=== PATIENT | female | born 1945 | race Caucasian/White ===

== ENCOUNTER 2017-09-08 21:07 | Emergency (ER) | payer MEDICARE, SELFPAY ==
[2017-09-08 21:07] VITALS: BP 182/71; PULSE 100; RESP 20; TEMP 38.1; O2SAT 97; BMI 21.9
--- NOTE | 2017-09-08 22:17 | RAD_ITS ---
STUDY: X-RAY CHEST REASON FOR EXAM: Female, 72 years old. Cough TECHNIQUE: Frontal and lateral views of the chest COMPARISON: 05/31/2017 FINDINGS: The lungs are clear. There are no pleural effusions. There is no pneumothorax. The heart is normal in size. The visualized osseous structures are within normal limits. RAD/Chest PA and Lateral IMPRESSION: No acute thoracic pathology. Electronically Signed: Homero Layton, at 23:58 EST Tel , Service support ,
--- NOTE | 2017-09-08 22:18 | ED.VISSUMM ---
- ER Visit Summary Date of Service: 09/08/17 Chief Complaint: [] Cough History of Present Illness: The patient is a 72 F [] complaining of cough, fever/chills, myalgias during the peak of flu season. Symptoms started 1 week ago. Patient is concerned because the cough has become productive. No other complaints at this time. Denies chest pain or shortness of breath. Physical Examination: [] Febrile at 100.6. Vital signs are within normal limits. Elderly female no acute distress. Cardiovascular exam is regular rate and rhythm. Lungs are clear to auscultation. Abdomen is soft and nontender. Test Results: [] Chest x-ray negative per my interpretation. Emergency Department Course and Treatment: [] Patient provided Tylenol orally in the emergency department. She was able to drink an entire bottle of water during her ED stay. I did not feel any laboratory testing was warranted. She was encouraged to hydrate and follow-up with her PCP. Treatment Plan: [] Follow-up with PCP. Disposition: [] Discharge, stable. Impression: [] Viral syndrome This note was generated with [employer] dictation software. It may contain incorrect words, spelling, and punctuation that were not noted in review of the chart prior to signing ED Disposition - Plan for ED Patient: Chief Complaint: Cough Referrals: Ar Hernández Chi, MD [Primary Care Provider] -
[2017-09-08 23:11] VITALS: BP 147/63; PULSE 83; RESP 16; O2SAT 94
--- NOTE | 2017-09-08 23:45 | ED.DEP ---
ED Disposition - Plan for ED Patient: Disposition: Home or Assisted Living Chief Complaint: Cough Instructions: ED Flu Referrals: Ar Hernández Chi, MD [Primary Care Provider] -
[2017-09-09] MEDS: Acetaminophen 500 MG Tablet 1000 MG PO
--- NOTE | 2017-09-09 00:10 | ED.RN ---
DISCHARGE INSTRUCTIONS GIVEN TO AND REVIEWED WITH PATIENT, PATIENT DENIES QUESTIONS OR CONCERNS AND VOICES UNDERSTANDING OF DISCHARGE INSTRUCTIONS. PT AMBULATES OUT OF ROOM WITHOUT DIFFICULTY.
== END 2017-09-09 00:11 | disposition home or self-care (01) ==
PROVIDERS: Emergency Provider Emergency Medicine; Family Provider Family Medicine Geriatric Medicine; PCP Family Medicine Geriatric Medicine
DX: B34.9 Viral infection, unspecified (principal); J11.1 Influenza due to unidentified influenza virus with other respiratory manifestations; E78.00 Pure hypercholesterolemia, unspecified; Z85.038 Personal history of other malignant neoplasm of large intestine; Z79.82 Long term (current) use of aspirin; Z79.899 Other long term (current) drug therapy
CPT/HCPCS: 71046; 99283

== ENCOUNTER → 2017-09-10 14:39 | Outpatient (CLI) | payer MEDICARE, SELFPAY | PROVIDERS: Family Provider Family Medicine Geriatric Medicine; PCP Family Medicine Geriatric Medicine; Visit Provider Family Medicine Geriatric Medicine | DX: R50.9 Fever, unspecified (principal) | CPT/HCPCS: 87633 ==

== ENCOUNTER → 2018-04-02 13:53 | Outpatient (CLI) | payer MEDICARE, SELFPAY ==
[2018-04-02 15:35] LABS: Absolute Lymphocyte Count 2.53 X10^3/ul (0.83-4.51); Absolute Neutrophil Count 4.8 X10^3/uL (2.0-7.7); Basophil# 0.04 X10^3/uL; Basophil% 0.5 % (0-1); Eosinophil# 0.13 X10^3/uL; Eosinophils% 1.6 % (0-5); Hematocrit 39.6 % (37-47); Hemoglobin 12.7 g/dl (12.0-15.0); Lymphocyte # 2.53 X10^3/ul (4.0); Lymphocyte % 30.6 % (19-41); Mean Corp Hgb Conc 32.1 g/gl (32-36); Mean Corpuscular Hgb 28.4 pg (27.0-32.0); Mean Corpuscular Volume 88.6 fL (81-99); Mean Platelet Vol. 10.4 fl (6.2-12.0); Monocyte# 0.73 X10^3/uL; Monocyte% 8.8 % (0-10); Neutrophil # 4.82 X10^3/uL (2.7-7.7); Neutrophil % 58.1 % (47-70); Platelet Count 316 K/mm3 (150-450); RBC Distribution Width CV 14.4 % (11.6-14.6); RBC Distribution Width SD 46.8 fl (35.1-43.9); Red Blood Count 4.47 M/mm3 (4.2-5.4); White Blood Count 8.3 K/mm3 (4.4-11.0)
[2018-04-02 15:41] LABS: POSITIVE COUNT NO; POSITIVE DIFFERENTIAL NO; POSITIVE MORPHOLOGY NO
[2018-04-02 16:10] LABS: ALB/GLOB Ratio 0.9 RATIO (0.9-2.4); AST(SGOT) 24 U/L (15-37); Alanine Aminotransfer ALT/SGPT 27 U/L (13-56); Albumin, Serum 4.1 g/dL (3.2-5.0); Alkaline Phosphatase 75 U/L (45-117); Anion Gap 11 (5-15); BUN 14 mg/dL (7-18); BUN/Creat Ratio 17.1 RATIO (10-20); Calcium,Total 9.5 mg/dL (8.5-10.1); Chloride 106 mmol/L (98-107); Creatinine, Serum 0.82 mg/dL (0.55-1.02); EST Glomerular Filtration Rate 73 mL/min (>60); Est Glom Filt Rate - Afr Amer 88 mL/min (>60); Globulin 4.4 g/dL (2.2-4.2); Glucose 85 mg/dL (74-106); Potassium 4.4 mmol/L (3.5-5.1); Protein, Total 8.5 g/dL (6.4-8.2); Sodium Level 142 mmol/L (136-145); Thyroid Stim Hormone (TSH) 0.61 uIU/mL (0.358-3.74)
[2018-04-03 09:00] LABS: Vitamin D,25 Hydroxy 40.9 ng/mL (29.95-100.01)
== END ==
PROVIDERS: Family Provider Family Medicine Geriatric Medicine; PCP Family Medicine Geriatric Medicine; Visit Provider Family Medicine Geriatric Medicine
DX: E55.9 Vitamin D deficiency, unspecified (principal); R53.83 Other fatigue
CPT/HCPCS: 36415; 80053; 82306; 84443; 85025

== ENCOUNTER 2018-06-24 06:54 | Day surgery (SDC) | payer MEDICARE, SELFPAY ==
[2018-06-24 07:17] VITALS: BP 138/69; PULSE 79; RESP 14; TEMP 36.2; O2SAT 98; BMI 24.0
[2018-06-24 08:20] VITALS: BP 124/47; BP 138/69; PULSE 72; RESP 20; TEMP 36; O2SAT 96
--- NOTE | 2018-06-24 08:22 | OP.ENDO_ITS ---
Patient Name: Kalani Don Procedure Date: 06/24/2018 7:48 AM Date of : 1945 Age: 73 Procedure: Colonoscopy Indications: High risk colon cancer surveillance: Personal history of colon cancer Providers: Tommy Ding MD Medicines: See the Anesthesia note for documentation of the administered medications Patient Profile: Last Colonoscopy: 2016. Complications: No immediate complications. Procedure: Pre-Anesthesia Assessment: - Prior to the procedure, a History and Physical was performed, and patient medications and allergies were reviewed. The patient's tolerance of previous anesthesia was also reviewed. The risks and benefits of the procedure and the sedation options and risks were discussed with the patient. All questions were answered, and informed consent was obtained. Prior Anticoagulants: The patient has taken aspirin, last dose was 7 days prior to procedure. ASA Grade Assessment: II - A patient with mild systemic disease. After reviewing the risks and benefits, the patient was deemed in satisfactory condition to undergo the procedure. After I obtained informed consent, the scope was passed under direct vision. Throughout the procedure, the patient's blood pressure, pulse, and oxygen saturations were monitored continuously. The adult colonoscope was introduced through the anus and advanced to the ileocolonic anastomosis. The colonoscopy was performed with difficulty due to a tortuous colon. The patient tolerated the procedure well. The quality of the bowel preparation was good. Scope In: 7:55:38 AM Scope Out: 8:17:09 AM Total Procedure Duration Time 0 hours 21 minutes 31 seconds Findings: The perianal and digital rectal examinations were normal. Non-bleeding internal hemorrhoids were found during retroflexion. The hemorrhoids were mild and small. The exam was otherwise without abnormality. Impression: - Non-bleeding internal hemorrhoids. - The examination was otherwise normal. - No specimens collected. Recommendation: - Discharge patient to home. - Resume previous diet. - Continue present medications. - Repeat colonoscopy in 3 years for surveillance. - Return to my office in 3 years. Procedure Code(s): --- Professional --- G0105, Colorectal cancer screening; colonoscopy on individual at high risk CPT copyright 2017 [employer] [place] [employer] [employer]. All rights reserved. The codes documented in this report are preliminary and upon antenna installer review may be revised to meet current compliance requirements. MD Tommy Ervin MD 06/24/2018 8:22:13 AM This report has been signed electronically. Number of Addenda: 0 Note Initiated On: 06/24/2018 7:48 AM
[2018-06-24 08:25] VITALS: BP 125/54; BP 138/69; PULSE 66; RESP 16; O2SAT 97
[2018-06-24 08:30] VITALS: BP 138/69; BP 139/60; PULSE 67; RESP 16; O2SAT 97
[2018-06-24 08:36] VITALS: BP 138/69; BP 151/53; PULSE 62; RESP 16; TEMP 36.2; O2SAT 99
[2018-06-24 08:43] VITALS: BP 138/69
== END 2018-06-24 08:58 | disposition home or self-care (01) ==
LOC: EN 06:55 → AC 06:56
PROVIDERS: Family Provider Family Medicine Geriatric Medicine; PCP Family Medicine Geriatric Medicine; Referring Provider Surgery; Visit Provider Surgery
PROC: 0DJD8ZZ Inspection of Lower Intestinal Tract, Via Natural or Artificial Opening Endoscopic (ICD-10-PCS; CPT 45378; principal; 2018-06-24 07:55)
DX: Z85.038 Personal history of other malignant neoplasm of large intestine (principal); K64.8 Other hemorrhoids; K63.89 Other specified diseases of intestine; E78.00 Pure hypercholesterolemia, unspecified; Z78.0 Asymptomatic menopausal state; Z90.49 Acquired absence of other specified parts of digestive tract; Z79.82 Long term (current) use of aspirin; Z79.899 Other long term (current) drug therapy; Z87.891 Personal history of nicotine dependence
CPT/HCPCS: G0105; J7120; J1610; J2405

== ENCOUNTER 2018-07-16 20:44 | Emergency (ER) | payer MEDICARE, SELFPAY ==
[2018-07-16 20:45] VITALS: BP 207/100; PULSE 98; RESP 18; TEMP 35.8; O2SAT 96; BMI 25.4
--- NOTE | 2018-07-16 21:25 | ED.DCSUM_ITS ---
- ER Visit Summary Date of Service: 07/16/18 Chief Complaint: [] Fall right periorbital laceration History of Present Illness: The patient is a 73 F [] inadvertently stumbled and fell in the dark she struck the right periorbital area, she had an injury striking the right periorbital area about a week ago so there is contused but now she has 2 lacerations one is vertical one is more around the right eye she has no change in vision she nausea vomiting no fever no other complaints no blood thinners she simply tripped and fell Physical Examination: [] 200/100 she has an obvious laceration that is vertical to the lateral right periorbital area 2 cm she has a 1 cm vertical laceration just lateral to the brow the eye has a very focal subconjunctival hemorrhage around the 7 o'clock position but she has no eye pain pupil reacts well anterior chambers intact vision is normal extraocular muscle movements are full without entrapment she has really no pain around the facial bones, the nose is unremarkable the rest of the face and HEENT exam is unremarkable the neck is unremarkable full range of motion chest abdomen upper lower extremities unremarkable neurologically she is awake alert moving all 4 Tetanus status is up-to-date The patient adamantly refused suturing I explained to the sutures might cause a better cosmetic less apparent scar but she declined that she did agree to glue the area was sterilely prepped copious irrigated cleansed and then using skin glue closed with good results Her blood pressure is elevated here this is likely related to the head trauma as she has had no issues with her blood pressure staying of her meds she will have all that reviewed with her outpatient providers Instructed on wound care head injury sheet to follow with her doctors return for change in symptoms Test Results: [] Emergency Department Course and Treatment: [] Treatment Plan: [] Disposition: [] Impression: [] 2 cm, and 1 cm right periorbital facial laceration This note was generated with [employer] dictation software. It may contain incorrect words, spelling, and punctuation that were not noted in review of the chart prior to signing ED Disposition - Plan for ED Patient: Chief Complaint: Laceration Instructions: ED Head Injury Closed, ED Laceration Facial Skin Glue Referrals: Ar Hernández Chi, MD [Primary Care Provider] -
== END 2018-07-16 21:45 | disposition home or self-care (01) ==
LOC: ED 21:27
PROVIDERS: Emergency Provider Emergency Medicine; Family Provider Family Medicine Geriatric Medicine; PCP Family Medicine Geriatric Medicine
DX: S01.111A Laceration without foreign body of right eyelid and periocular area, initial encounter (principal); S01.81XA Laceration without foreign body of other part of head, initial encounter; H11.31 Conjunctival hemorrhage, right eye; W01.0XXA Fall on same level from slipping, tripping and stumbling without subsequent striking against object, initial encounter; Y93.9 Activity, unspecified; Y92.9 Unspecified place or not applicable
CPT/HCPCS: 12013; 99281

== ENCOUNTER → 2018-10-01 14:36 | Outpatient (CLI) | payer MEDICARE, SELFPAY ==
--- NOTE | 2018-10-01 14:42 | RAD_ITS ---
STUDY: X-RAY - SKULL REASON FOR EXAM: Female, 73 years old. Intermittent right orbital pain. TECHNIQUE: 3 view(s) of the skull were obtained. COMPARISON: None. FINDINGS: There is no demonstrated soft tissue swelling. Normal osseous calvarium. Normal visualized facial bones. Normal visualized paranasal sinuses. RAD/Skull less than 4 Views IMPRESSION: Normal x-ray examination of the skull. Electronically Signed: Magdy Babcock MD at 15:48 EST , Service support ,
[2018-10-01 17:10] LABS: Absolute Lymphocyte Count 2.05 X10^3/ul (0.83-4.51); Absolute Neutrophil Count 6.6 X10^3/uL (2.0-7.7); Basophil# 0.04 X10^3/uL; Basophil% 0.4 % (0-1); Eosinophil# 0.16 X10^3/uL; Eosinophils% 1.7 % (0-5); Hematocrit 38.4 % (37-47); Hemoglobin 12.2 g/dl (12.0-15.0); Lymphocyte # 2.05 X10^3/ul (4.0); Lymphocyte % 21.4 % (19-41); Mean Corp Hgb Conc 31.8 g/gl (32-36); Mean Corpuscular Hgb 28.6 pg (27.0-32.0); Mean Corpuscular Volume 89.9 fL (81-99); Mean Platelet Vol. 10.8 fl (6.2-12.0); Monocyte# 0.78 X10^3/uL; Monocyte% 8.1 % (0-10); Neutrophil # 6.55 X10^3/uL (2.7-7.7); Neutrophil % 68.2 % (47-70); Platelet Count 269 K/mm3 (150-450); RBC Distribution Width CV 14.4 % (11.6-14.6); RBC Distribution Width SD 47.2 fl (35.1-43.9); Red Blood Count 4.27 M/mm3 (4.2-5.4); White Blood Count 9.6 K/mm3 (4.4-11.0)
[2018-10-01 17:17] LABS: POSITIVE COUNT NO; POSITIVE DIFFERENTIAL NO; POSITIVE MORPHOLOGY NO
[2018-10-01 17:49] LABS: Vitamin D,25 Hydroxy 25.7 ng/mL (29.95-100.01)
[2018-10-01 17:59] LABS: AST(SGOT) 24 U/L (15-37); Alanine Aminotransfer ALT/SGPT 23 U/L (13-56); Albumin, Serum 3.8 g/dL (3.2-5.0); Alkaline Phosphatase 88 U/L (45-117); Anion Gap 10 (5-15); BUN 16 mg/dL (7-18); BUN/Creat Ratio 18.7 RATIO (10-20); Calcium,Total 9.1 mg/dL (8.5-10.1); Chloride 107 mmol/L (98-107); Creatinine, Serum 0.86 mg/dL (0.55-1.02); EST Glomerular Filtration Rate 69 mL/min (>60); Est Glom Filt Rate - Afr Amer 83 mL/min (>60); Glucose 88 mg/dL (74-106); Potassium 3.5 mmol/L (3.5-5.1); Protein, Total 7.8 g/dL (6.4-8.2); Sodium Level 142 mmol/L (136-145); Thyroid Stim Hormone (TSH) 1.02 uIU/mL (0.358-3.74)
== END ==
PROVIDERS: Family Provider Family Medicine Geriatric Medicine; PCP Family Medicine Geriatric Medicine; Referring Provider Family Medicine Geriatric Medicine; Visit Provider Family Medicine Geriatric Medicine
DX: H57.11 Ocular pain, right eye (principal); W19.XXXA Unspecified fall, initial encounter; E55.9 Vitamin D deficiency, unspecified; I10 Essential (primary) hypertension
CPT/HCPCS: 36415; 70250; 80053; 82306; 84443; 85025

== ENCOUNTER → 2018-12-11 | Outpatient (CLI) | payer MEDICARE, SELFPAY | END | disposition home or self-care (01) | LOC: PSN 14:31 | PROVIDERS: Family Provider Family Medicine Geriatric Medicine; PCP Family Medicine Geriatric Medicine; Referring Provider Family Medicine Geriatric Medicine; Visit Provider Family Medicine Geriatric Medicine | DX: R05 Cough (principal); R53.81 Other malaise | CPT/HCPCS: 87633 ==

== ENCOUNTER → 2019-05-06 13:45 | Outpatient (CLI) | payer MEDICARE, SELFPAY ==
[2019-05-06 16:33] LABS: Absolute Lymphocyte Count 2.35 X10^3/uL (0.83-4.51); Absolute Neutrophil Count 5.2 X10^3/uL (2.0-7.7); Basophil# 0.04 X10^3/uL; Basophil% 0.5 % (0-1); Eosinophil# 0.17 X10^3/uL; Hematocrit 38.1 % (37-47); Hemoglobin 12.1 g/dL (12.0-15.0); Lymphocyte # 2.35 X10^3/ul (4.0); Lymphocyte % 27.8 % (19-41); Mean Corp Hgb Conc 31.8 g/dL (32-36); Mean Corpuscular Hgb 28.4 pg (27.0-32.0); Mean Corpuscular Volume 89.4 fL (81-99); Mean Platelet Vol. 10.4 fl (6.2-12.0); Monocyte# 0.69 X10^3/uL; Monocyte% 8.2 % (0-10); NRBC Flagged by Analyzer 0 % (0-5); Neutrophil # 5.16 X10^3/uL (2.7-7.7); Neutrophil % 61.1 % (47-70); Platelet Count 294 K/mm3 (150-450); RBC Distribution Width CV 13.9 % (11.6-14.6); RBC Distribution Width SD 45.1 fl (35.1-43.9); Red Blood Count 4.26 M/mm3 (4.2-5.4); White Blood Count 8.4 K/mm3 (4.4-11.0)
[2019-05-06 16:56] LABS: Vitamin D,25 Hydroxy 37.9 ng/mL (29.95-100.01)
[2019-05-06 17:08] LABS: AST(SGOT) 22 U/L (15-37); Alanine Aminotransfer ALT/SGPT 23 U/L (13-56); Albumin, Serum 3.8 g/dL (3.2-5.0); Alkaline Phosphatase 83 U/L (45-117); Anion Gap 8 (5-15); BUN 16 mg/dL (7-18); BUN/Creat Ratio 19.4 RATIO (10-20); Calcium,Total 9.3 mg/dL (8.5-10.1); Chloride 106 mmol/L (98-107); Creatinine, Serum 0.82 mg/dL (0.55-1.02); EST Glomerular Filtration Rate 72 mL/min (>60); Est Glom Filt Rate - Afr Amer 87 mL/min (>60); Globulin 3.8 g/dL (2.2-4.2); Glucose 96 mg/dL (74-106); Potassium 4.6 mmol/L (3.5-5.1); Protein, Total 7.6 g/dL (6.4-8.2); Sodium Level 142 mmol/L (136-145); Thyroid Stim Hormone (TSH) 1.24 uIU/mL (0.358-3.74)
== END ==
PROVIDERS: Family Provider Family Medicine Geriatric Medicine; PCP Family Medicine Geriatric Medicine; Visit Provider Family Medicine Geriatric Medicine
DX: I10 Essential (primary) hypertension (principal); E55.9 Vitamin D deficiency, unspecified
CPT/HCPCS: 36415; 80053; 82306; 84443; 85025

== ENCOUNTER → 2019-07-25 11:07 | Outpatient (CLI) | payer MEDICARE, SELFPAY | PROVIDERS: Family Provider Family Medicine Geriatric Medicine; PCP Family Medicine Geriatric Medicine; Visit Provider Family Medicine Geriatric Medicine | DX: N39.0 Urinary tract infection, site not specified (principal) | CPT/HCPCS: 87077; 87086; 87088; 87186 ==

== ENCOUNTER → 2019-08-28 15:55 | Outpatient (CLI) | payer MEDICARE, SELFPAY ==
--- NOTE | 2019-08-28 16:08 | RAD_ITS ---
STUDY: X-RAY CHEST REASON FOR EXAM: Female, 74 years old. Cough with flu-like symptoms for 3 days. TECHNIQUE: Frontal and lateral views of the chest. COMPARISON: September 08, 2017 FINDINGS: Stable hyperexpansion. New patchy opacity in right upper lobe compatible with right upper lobe pneumonia. There is no demonstrated pleural abnormality. Stable borderline cardiomegaly. Normal mediastinum and michelle. Normal visualized pulmonary arteries. There is atherosclerotic calcification of the aortic arch with tortuosity. Normal visualized thoracic spine. Normal visualized ribs, clavicles, and shoulders. There is no demonstrated abnormality of the visualized soft tissue structures of the upper abdomen. RAD/Chest PA and Lateral IMPRESSION: Borderline cardiomegaly with hyperexpansion unchanged. Right upper lobe pneumonia. Electronically Signed: Nick Alvarez MD at 16:40 EST , Service support ,
== END ==
PROVIDERS: PCP Family Medicine Geriatric Medicine; Referring Provider Family Medicine Geriatric Medicine; Visit Provider Family Medicine Geriatric Medicine
DX: R05 Cough (principal); R68.83 Chills (without fever)
CPT/HCPCS: 71046; 87633

== ENCOUNTER → 2019-12-29 14:55 | Outpatient (CLI) | payer MEDICARE, SELFPAY ==
[2019-12-29 16:35] LABS: Absolute Lymphocyte Count 2.07 X10^3/uL (0.83-4.51); Absolute Neutrophil Count 5.5 X10^3/uL (2.0-7.7); Basophil# 0.06 X10^3/uL; Basophil% 0.7 % (0-1); Eosinophil# 0.12 X10^3/uL; Eosinophils% 1.4 % (0-5); Hematocrit 40.7 % (37-47); Hemoglobin 12.8 g/dL (12.0-15.0); Lymphocyte # 2.07 X10^3/ul (4.0); Lymphocyte % 24.5 % (19-41); Mean Corp Hgb Conc 31.4 g/dL (32-36); Mean Corpuscular Hgb 28.2 pg (27.0-32.0); Mean Corpuscular Volume 89.6 fL (81-99); Monocyte# 0.67 X10^3/uL; Monocyte% 7.9 % (0-10); NRBC Flagged by Analyzer 0 % (0-5); Neutrophil # 5.48 X10^3/uL (2.7-7.7); Platelet Count 322 K/mm3 (150-450); RBC Distribution Width CV 14.6 % (11.6-14.6); RBC Distribution Width SD 47.4 fl (35.1-43.9); Red Blood Count 4.54 M/mm3 (4.2-5.4); White Blood Count 8.4 K/mm3 (4.4-11.0)
[2019-12-29 16:55] LABS: AST(SGOT) 22 U/L (15-37); Alanine Aminotransfer ALT/SGPT 25 U/L (13-56); Albumin, Serum 3.8 g/dL (3.2-5.0); Alkaline Phosphatase 75 U/L (45-117); Anion Gap 8 (5-15); BUN 16 mg/dL (7-18); BUN/Creat Ratio 18.6 RATIO (10-20); Calcium,Total 9.3 mg/dL (8.5-10.1); Chloride 108 mmol/L (98-107); Creatinine, Serum 0.86 mg/dL (0.55-1.02); EST Glomerular Filtration Rate 68 mL/min (>60); Est Glom Filt Rate - Afr Amer 82 mL/min (>60); Globulin 3.8 g/dL (2.2-4.2); Glucose 123 mg/dL (74-106); Potassium 3.6 mmol/L (3.5-5.1); Protein, Total 7.6 g/dL (6.4-8.2); Sodium Level 143 mmol/L (136-145); Thyroid Stim Hormone (TSH) 1.18 uIU/mL (0.358-3.74)
== END ==
PROVIDERS: PCP Family Medicine Geriatric Medicine; Visit Provider Family Medicine Geriatric Medicine
DX: I10 Essential (primary) hypertension (principal); E55.9 Vitamin D deficiency, unspecified
CPT/HCPCS: 36415; 80053; 82306; 84443; 85025

== ENCOUNTER → 2020-05-12 15:50 | Outpatient (CLI) | payer MEDICARE, SELFPAY ==
[2020-05-12 17:04] LABS: Absolute Lymphocyte Count 2.22 X10^3/uL (0.83-4.51); Absolute Neutrophil Count 4.8 X10^3/uL (2.0-7.7); Basophil# 0.06 X10^3/uL; Basophil% 0.8 % (0-1); Eosinophil# 0.14 X10^3/uL; Eosinophils% 1.8 % (0-5); Hemoglobin 12.5 g/dL (12.0-15.0); Lymphocyte # 2.22 X10^3/ul (4.0); Lymphocyte % 28.1 % (19-41); Mean Corp Hgb Conc 31.3 g/dL (32-36); Mean Corpuscular Hgb 28.4 pg (27.0-32.0); Mean Corpuscular Volume 90.9 fL (81-99); Mean Platelet Vol. 10.1 fl (6.2-12.0); Monocyte# 0.61 X10^3/uL; Monocyte% 7.7 % (0-10); NRBC Flagged by Analyzer 0 % (0-5); Neutrophil # 4.83 X10^3/uL (2.7-7.7); Neutrophil % 61.1 % (47-70); Platelet Count 318 K/mm3 (150-450); RBC Distribution Width CV 14.2 % (11.6-14.6); RBC Distribution Width SD 47.5 fl (35.1-43.9); White Blood Count 7.9 K/mm3 (4.4-11.0)
[2020-05-12 17:13] LABS: Vitamin D,25 Hydroxy 49.9 ng/mL
[2020-05-12 17:20] LABS: AST(SGOT) 21 U/L (15-37); Alanine Aminotransfer ALT/SGPT 23 U/L (13-56); Albumin, Serum 4.1 g/dL (3.2-5.0); Alkaline Phosphatase 134 U/L (45-117); Anion Gap 9 (5-15); BUN 14 mg/dL (7-18); BUN/Creat Ratio 16.8 RATIO (10-20); Calcium,Total 9.4 mg/dL (8.5-10.1); Chloride 103 mmol/L (98-107); Creatinine, Serum 0.84 mg/dL (0.55-1.02); EST Glomerular Filtration Rate 70 mL/min (>60); Est Glom Filt Rate - Afr Amer 85 mL/min (>60); Glucose 92 mg/dL (74-106); Potassium 3.8 mmol/L (3.5-5.1); Protein, Total 8.1 g/dL (6.4-8.2); Sodium Level 138 mmol/L (136-145); Thyroid Stim Hormone (TSH) 1.38 uIU/mL (0.358-3.74)
== END ==
PROVIDERS: PCP Family Medicine Geriatric Medicine; Visit Provider Family Medicine Geriatric Medicine
DX: R53.83 Other fatigue (principal); E55.9 Vitamin D deficiency, unspecified
CPT/HCPCS: 36415; 80053; 82306; 84443; 85025

== ENCOUNTER → 2020-08-31 17:23 | Outpatient (CLI) | payer MEDICARE, SELFPAY | PROVIDERS: PCP Family Medicine Geriatric Medicine; Referring Provider Family Medicine Geriatric Medicine; Visit Provider Family Medicine Geriatric Medicine | DX: R68.83 Chills (without fever) (principal) | CPT/HCPCS: 87633; 87635; C9803; U0003 ==

== ENCOUNTER → 2020-11-03 14:01 | Outpatient (CLI) | payer MEDICARE, SELFPAY ==
[2020-11-03 16:33] LABS: Absolute Lymphocyte Count 2.54 X10^3/uL (0.83-4.51); Absolute Neutrophil Count 5.6 X10^3/uL (2.0-7.7); Basophil# 0.05 X10^3/uL; Basophil% 0.6 % (0-1); Eosinophil# 0.12 X10^3/uL; Eosinophils% 1.3 % (0-5); Hemoglobin 12.6 g/dL (12.0-15.0); Lymphocyte # 2.54 X10^3/ul (4.0); Mean Corp Hgb Conc 31.5 g/dL (32-36); Mean Corpuscular Hgb 28.4 pg (27.0-32.0); Mean Corpuscular Volume 90.1 fL (81-99); Mean Platelet Vol. 10.4 fl (6.2-12.0); Monocyte# 0.77 X10^3/uL; Monocyte% 8.5 % (0-10); NRBC Flagged by Analyzer 0 % (0-5); Neutrophil # 5.55 X10^3/uL (2.7-7.7); Platelet Count 321 K/mm3 (150-450); RBC Distribution Width CV 14.4 % (11.6-14.6); RBC Distribution Width SD 47.9 fl (35.1-43.9); Red Blood Count 4.44 M/mm3 (4.2-5.4); White Blood Count 9.1 K/mm3 (4.4-11.0)
[2020-11-03 16:53] LABS: Vitamin D,25 Hydroxy 35.5 ng/mL
[2020-11-03 17:01] LABS: AST(SGOT) 20 U/L (15-37); Alanine Aminotransfer ALT/SGPT 22 U/L (13-56); Albumin, Serum 3.8 g/dL (3.2-5.0); Alkaline Phosphatase 82 U/L (45-117); Anion Gap 8 (5-15); BUN 17 mg/dL (7-18); BUN/Creat Ratio 21.2 RATIO (10-20); Calcium,Total 8.8 mg/dL (8.5-10.1); Chloride 108 mmol/L (98-107); EST Glomerular Filtration Rate 74 mL/min (>60); Est Glom Filt Rate - Afr Amer 89 mL/min (>60); Globulin 3.7 g/dL (2.2-4.2); Glucose 120 mg/dL (74-106); Potassium 4.3 mmol/L (3.5-5.1); Protein, Total 7.5 g/dL (6.4-8.2); Sodium Level 141 mmol/L (136-145); Thyroid Stim Hormone (TSH) 1.09 uIU/mL (0.358-3.74)
== END ==
PROVIDERS: PCP Family Medicine Geriatric Medicine; Visit Provider Family Medicine Geriatric Medicine
DX: E55.9 Vitamin D deficiency, unspecified (principal); R53.83 Other fatigue
CPT/HCPCS: 36415; 80053; 82306; 84443; 85025

== ENCOUNTER → 2021-05-16 16:16 | Outpatient (CLI) | payer MEDICARE, SELFPAY ==
[2021-05-16 17:36] LABS: Absolute Lymphocyte Count 2.71 X10^3/uL (0.83-4.51); Absolute Neutrophil Count 5.2 X10^3/uL (2.0-7.7); Basophil# 0.06 X10^3/uL; Basophil% 0.7 % (0-1); Eosinophil# 0.16 X10^3/uL; Eosinophils% 1.8 % (0-5); Hematocrit 37.7 % (37-47); Hemoglobin 11.9 g/dL (12.0-15.0); Lymphocyte # 2.71 X10^3/ul (0.83-4.51); Lymphocyte % 30.3 % (19-41); Mean Corp Hgb Conc 31.6 g/dL (32-36); Mean Corpuscular Hgb 28.2 pg (27.0-32.0); Mean Corpuscular Volume 89.3 fL (81-99); Monocyte# 0.75 X10^3/uL; Monocyte% 8.4 % (0-10); NRBC Flagged by Analyzer 0 % (0-5); Neutrophil # 5.21 X10^3/uL (2.7-7.7); Neutrophil % 58.4 % (47-70); Platelet Count 292 K/mm3 (150-450); RBC Distribution Width CV 14.1 % (11.6-14.6); RBC Distribution Width SD 45.4 fl (35.1-43.9); Red Blood Count 4.22 M/mm3 (4.2-5.4); White Blood Count 8.9 K/mm3 (4.4-11.0)
[2021-05-16 17:55] LABS: Vitamin D,25 Hydroxy 27.6 ng/mL
[2021-05-16 17:59] LABS: ALB/GLOB Ratio 0.9 RATIO (0.9-2.4); AST(SGOT) 19 U/L (15-37); Alanine Aminotransfer ALT/SGPT 21 U/L (13-56); Albumin, Serum 3.7 g/dL (3.2-5.0); Alkaline Phosphatase 82 U/L (45-117); Anion Gap 10 (5-15); BUN 18 mg/dL (7-18); BUN/Creat Ratio 25.8 RATIO (10-20); Calcium,Total 9.1 mg/dL (8.5-10.1); Chloride 103 mmol/L (98-107); EST Glomerular Filtration Rate 86 mL/min (>60); Est Glom Filt Rate - Afr Amer 104 mL/min (>60); Globulin 3.9 g/dL (2.2-4.2); Glucose 95 mg/dL (74-106); Potassium 3.7 mmol/L (3.5-5.1); Protein, Total 7.6 g/dL (6.4-8.2); Sodium Level 138 mmol/L (136-145); Thyroid Stim Hormone (TSH) 1.01 uIU/mL (0.358-3.74)
== END ==
PROVIDERS: PCP Family Medicine Geriatric Medicine; Visit Provider Family Medicine Geriatric Medicine
DX: I10 Essential (primary) hypertension (principal); E55.9 Vitamin D deficiency, unspecified
CPT/HCPCS: 36415; 80053; 82306; 84443; 85025

== ENCOUNTER → 2021-12-21 | Outpatient (CLI) | payer MEDICARE, SELFPAY ==
--- NOTE | 2021-12-21 16:30 | RAD_ITS ---
INDICATION: NECK PAIN EXAMINATION/TECHNIQUE: X-RAY - XR Spine Cervical 2 or 3 Views COMPARISON: None. FINDINGS: VERTEBRAE: Vertebral body height is maintained, there are findings consistent with fusion at C5-6. There is straightening of cervical lordosis. No fracture noted. No destructive bony process noted. Odontoid process has normal appearance. No fracture. No spondylolisthesis. Odontoid process has normal appearance. Multilevel facet arthropathy noted most notable from C3 to C5, and at C6-7. DISCS: Significant spondylosis noted at C6-7 with endplate sclerosis and marginal osteophyte formation. No anterolisthesis noted. Fusion at C5-6 is noted. NECK SOFT TISSUES: No prevertebral soft tissue widening. LUNG APICES: Clear. RAD/Cerv Spine 2 or 3 Views IMPRESSION: 1. Cervical spondylosis, facet arthropathy as detailed. There are findings consistent with fusion at the C5-6 level which may be congenital. 2. No acute fractures identified. No destructive bony process. Electronically Signed: Amadou Astudillo MD at 20:49 EDT ,
[2021-12-21 17:10] LABS: Absolute Neutrophil Count 5.9 X10^3/uL (2.0-7.7); Basophil# 0.07 X10^3/uL; Basophil% 0.7 % (0-1); Eosinophil# 0.24 X10^3/uL; Eosinophils% 2.4 % (0-5); Hematocrit 37.5 % (37-47); Hemoglobin 12.4 g/dL (12.0-15.0); Lymphocyte % 30.7 % (19-41); Mean Corp Hgb Conc 33.1 g/dL (32-36); Mean Corpuscular Hgb 29.2 pg (27.0-32.0); Mean Corpuscular Volume 88.4 fL (81-99); Mean Platelet Vol. 10.3 fl (6.2-12.0); Monocyte# 0.79 X10^3/uL; Monocyte% 7.8 % (0-10); NRBC Flagged by Analyzer 0 % (0-5); Neutrophil # 5.86 X10^3/uL (2.7-7.7); Neutrophil % 57.9 % (47-70); Platelet Count 306 K/mm3 (150-450); RBC Distribution Width CV 13.8 % (11.6-14.6); RBC Distribution Width SD 44.7 fl (35.1-43.9); Red Blood Count 4.24 M/mm3 (4.2-5.4); White Blood Count 10.1 K/mm3 (4.4-11.0)
[2021-12-21 17:35] LABS: ALB/GLOB Ratio 1.1 RATIO (0.9-2.4); AST(SGOT) 20 U/L (15-37); Alanine Aminotransfer ALT/SGPT 25 U/L (13-56); Alkaline Phosphatase 165 U/L (45-117); Anion Gap 6 (5-15); BUN 21 mg/dL (7-18); BUN/Creat Ratio 24.2 RATIO (10-20); Calcium,Total 9.4 mg/dL (8.5-10.1); Chloride 104 mmol/L (98-107); Creatinine, Serum 0.87 mg/dL (0.55-1.02); EST Glomerular Filtration Rate 67 mL/min (>60); Est Glom Filt Rate - Afr Amer 81 mL/min (>60); Globulin 3.8 g/dL (2.2-4.2); Glucose 105 mg/dL (74-106); Protein, Total 7.8 g/dL (6.4-8.2); Sodium Level 138 mmol/L (136-145); Thyroid Stim Hormone (TSH) 1.29 uIU/mL (0.358-3.74)
== END | disposition home or self-care (01) ==
LOC: POLAB3 15:53 → RAD 16:25
PROVIDERS: PCP Family Medicine Geriatric Medicine; Referring Provider Family Medicine Geriatric Medicine; Visit Provider Family Medicine Geriatric Medicine
DX: M54.2 Cervicalgia (principal); I10 Essential (primary) hypertension; E55.9 Vitamin D deficiency, unspecified
CPT/HCPCS: 36415; 72040; 80053; 82306; 84443; 85025

== ENCOUNTER → 2022-06-14 | Outpatient (CLI) | payer MEDICARE, SELFPAY ==
[2022-06-14 17:26] LABS: Vitamin D,25 Hydroxy 40.4 ng/mL
[2022-06-14 17:38] LABS: ALB/GLOB Ratio 0.9 RATIO (0.9-2.4); AST(SGOT) 21 U/L (15-37); Alanine Aminotransfer ALT/SGPT 26 U/L (13-56); Albumin, Serum 3.8 g/dL (3.2-5.0); Alkaline Phosphatase 160 U/L (45-117); Anion Gap 8 (5-15); BUN 20 mg/dL (7-18); BUN/Creat Ratio 27.2 RATIO (10-20); Calcium,Total 8.9 mg/dL (8.5-10.1); Chloride 107 mmol/L (98-107); Creatinine, Serum 0.73 mg/dL (0.55-1.02); EST Glomerular Filtration Rate 81 mL/min (>60); Est Glom Filt Rate - Afr Amer 98 mL/min (>60); Globulin 4.3 g/dL (2.2-4.2); Glucose 100 mg/dL (74-106); Protein, Total 8.1 g/dL (6.4-8.2); Sodium Level 137 mmol/L (136-145); Thyroid Stim Hormone (TSH) 1.14 uIU/mL (0.358-3.74)
== END | disposition home or self-care (01) ==
LOC: POLAB3 13:56
PROVIDERS: PCP Family Medicine Geriatric Medicine; Visit Provider Family Medicine Geriatric Medicine
DX: E55.9 Vitamin D deficiency, unspecified (principal); R53.83 Other fatigue
CPT/HCPCS: 36415; 80053; 82306; 84443

== ENCOUNTER → 2022-09-28 | Outpatient (CLI) | payer MEDICARE, SELFPAY | END | disposition home or self-care (01) | LOC: PSN 13:44 | PROVIDERS: PCP Family Medicine Geriatric Medicine; Visit Provider Family Medicine Geriatric Medicine | DX: R68.83 Chills (without fever) (principal) | CPT/HCPCS: 87635; 87804; 87807; U0003; U0005 ==

== ENCOUNTER → 2023-02-05 | Outpatient (CLI) | payer MEDICARE, SELFPAY ==
[2023-02-05 17:16] LABS: Absolute Lymphocyte Count 3.01 X10^3/uL (0.83-4.51); Absolute Neutrophil Count 5.1 X10^3/uL (2.0-7.7); Basophil# 0.09 X10^3/uL; Basophil% 0.9 % (0-1); Eosinophil# 0.51 X10^3/uL; Eosinophils% 5.3 % (0-5); Hematocrit 39.9 % (37-47); Hemoglobin 12.6 g/dL (12.0-15.0); Lymphocyte # 3.01 X10^3/ul (0.83-4.51); Lymphocyte % 31.1 % (19-41); Mean Corp Hgb Conc 31.6 g/dL (32-36); Mean Corpuscular Hgb 28.2 pg (27.0-32.0); Mean Corpuscular Volume 89.3 fL (81-99); Mean Platelet Vol. 9.9 fl (6.2-12.0); Monocyte# 0.97 X10^3/uL; NRBC Flagged by Analyzer 0 % (0-5); Neutrophil # 5.05 X10^3/uL (2.7-7.7); Neutrophil % 52.3 % (47-70); Platelet Count 297 K/mm3 (150-450); RBC Distribution Width CV 14.8 % (11.6-14.6); RBC Distribution Width SD 48.9 fl (35.1-43.9); Red Blood Count 4.47 M/mm3 (4.2-5.4); White Blood Count 9.7 K/mm3 (4.4-11.0)
[2023-02-05 17:44] LABS: Vitamin D,25 Hydroxy 53.9 ng/mL
[2023-02-05 17:49] LABS: ALB/GLOB Ratio 0.9 RATIO (0.9-2.4); AST(SGOT) 24 U/L (15-37); Alanine Aminotransfer ALT/SGPT 19 U/L (13-56); Albumin, Serum 3.7 g/dL (3.2-5.0); Alkaline Phosphatase 119 U/L (45-117); Anion Gap 7 (5-15); BUN 15 mg/dL (7-18); BUN/Creat Ratio 19.9 RATIO (10-20); Calcium,Total 9.1 mg/dL (8.5-10.1); Chloride 108 mmol/L (98-107); Creatinine, Serum 0.75 mg/dL (0.55-1.02); EST Glomerular Filtration Rate 79 mL/min (>60); Est Glom Filt Rate - Afr Amer 95 mL/min (>60); Globulin 3.9 g/dL (2.2-4.2); Glucose 98 mg/dL (74-106); Protein, Total 7.6 g/dL (6.4-8.2); Sodium Level 142 mmol/L (136-145); Thyroid Stim Hormone (TSH) 1.55 uIU/mL (0.358-3.74)
== END | disposition home or self-care (01) ==
LOC: LAB 16:42
PROVIDERS: PCP Family Medicine Geriatric Medicine; Referring Provider Family Medicine Geriatric Medicine; Visit Provider Family Medicine Geriatric Medicine
DX: I10 Essential (primary) hypertension (principal); E55.9 Vitamin D deficiency, unspecified
CPT/HCPCS: 36415; 80053; 82306; 84443; 85025

== ENCOUNTER → 2023-06-18 | Outpatient (CLI) | payer MEDICARE, SELFPAY ==
[2023-06-18 15:43] LABS: Absolute Lymphocyte Count 2.39 X10^3/uL (0.83-4.51); Absolute Neutrophil Count 5.7 X10^3/uL (2.0-7.7); Basophil# 0.06 X10^3/uL; Basophil% 0.7 % (0-1); Eosinophil# 0.23 X10^3/uL; Eosinophils% 2.5 % (0-5); Hematocrit 38.7 % (37-47); Hemoglobin 12.3 g/dL (12.0-15.0); Lymphocyte # 2.39 X10^3/ul (0.83-4.51); Mean Corp Hgb Conc 31.8 g/dL (32-36); Mean Corpuscular Hgb 28.4 pg (27.0-32.0); Mean Corpuscular Volume 89.4 fL (81-99); Mean Platelet Vol. 9.8 fl (6.2-12.0); Monocyte% 8.7 % (0-10); NRBC Flagged by Analyzer 0 % (0-5); Neutrophil # 5.66 X10^3/uL (2.7-7.7); Neutrophil % 61.7 % (47-70); Platelet Count 286 K/mm3 (150-450); RBC Distribution Width SD 46.1 fl (35.1-43.9); Red Blood Count 4.33 M/mm3 (4.2-5.4); White Blood Count 9.2 K/mm3 (4.4-11.0)
[2023-06-18 17:45] LABS: Vitamin D,25 Hydroxy 55.3 ng/mL
[2023-06-18 17:53] LABS: ALB/GLOB Ratio 1.1 RATIO (0.9-2.4); AST(SGOT) 17 U/L (15-37); Alanine Aminotransfer ALT/SGPT 18 U/L (13-56); Albumin, Serum 3.8 g/dL (3.2-5.0); Alkaline Phosphatase 108 U/L (45-117); Anion Gap 5 (5-15); BUN 24 mg/dL (7-18); BUN/Creat Ratio 31.2 RATIO (10-20); Chloride 108 mmol/L (98-107); Creatinine, Serum 0.77 mg/dL (0.55-1.02); EST Glomerular Filtration Rate 77 mL/min (>60); Est Glom Filt Rate - Afr Amer 93 mL/min (>60); Globulin 3.6 g/dL (2.2-4.2); Glucose 98 mg/dL (74-106); Potassium 3.9 mmol/L (3.5-5.1); Protein, Total 7.4 g/dL (6.4-8.2); Sodium Level 141 mmol/L (136-145); Thyroid Stim Hormone (TSH) 1.26 uIU/mL (0.358-3.74)
== END | disposition home or self-care (01) ==
LOC: POLAB3 15:07
PROVIDERS: PCP Family Medicine Geriatric Medicine; Visit Provider Family Medicine Geriatric Medicine
DX: I10 Essential (primary) hypertension (principal); E55.9 Vitamin D deficiency, unspecified
CPT/HCPCS: 36415; 80053; 82306; 84443; 85025

== ENCOUNTER → 2023-09-18 | Outpatient (CLI) | payer MEDICARE, SELFPAY ==
--- OUTSIDE RECORDS SUMMARY | 2023-09-18 16:45 | XMS RPT_ITS | CCD ---
Author Name Unknown Address [address] [place] [address] Organization [facility] Care Team Providers Care Practice Nurse Name Role Phone Tommy Ding MD Unavailable Felipa PEREIRA, Sharon Damon Unavailable [phone] Autumn Power Unavailable Unavailable Tommy Ding MD Unavailable Edgar, Ar Chi Primary Care Provider Edgar, Ar Chi Primary Care Provider Allergies Allergy Classification Reported Allergen(s) Allergy Type Date of Onset Reaction(s) Facility (4 sources) povidone-iodine drug allergy 11-03-2015 unknown [facility] Work Phone: (8 sources) traMADol drug allergy 06-10-2012 vomiting [facility] Work Phone: (8 sources) ALTRAM drug allergy 06-10-2012 vominting [facility] Work Phone: (2 sources) Iodine Drug Allergy 04-13-2016 Rash [facility] (2 sources) traMADol Drug Allergy 01-01-2013 GI Upset [facility] Medications Completed/Discontinued Medications Medication Drug Class(es) Dates Sig (Normalized) Sig (Original) acetaminophen 325 mg / oxyCODONE hydrochloride 5 mg oral tablet (8 sources) Opioid Agonist Start: 05-27-2012 End: 06-24-2012 take 1-2 tablets by mouth four times daily as needed for pain PERCOCET 5-325 MG TABS one to two tablets by mouth four times daily as needed for pain OXYCODONE-ACETAMIN OPHEN [id number] 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 Problems Active Problems Problem Classification Problem Date Documented Da te Episodic/Chronic Cancer of colon (8 sources) History of malignant neoplasm of colon; Translations: [Personal history of other malignant neoplasm of large intestine] Onset: 03-11-2014 03-28-2017 Episodic Diseases of white blood cells (4 sources) Leukocytosis; Translations: [Elevated white blood cell count, unspecified] Onset: 12-01-2015 12-01-2015 Chronic Infective arthritis and osteomyelitis (except that caused by tuberculosis or sexually transmitted disease) (4 sources) Other acute osteomyelitis, unspecified hand; Translations: [Other acute osteomyelitis, unspecified hand] Onset: 06-03-2012 06-24-2012 Chronic Substance-related disorders (4 sources) Smoker; Translations: [Nicotine dependence, cigarettes, uncomplicated] Onset: 06-03-2012 06-24-2012 Chronic Past or Other Problems Problem Classification Problem Date Documented Da te Episodic/Chronic Bacterial infection; unspecified site (4 sources) Staphylococcal infectious disease; Translations: [Methicillin susceptible Staphylococcus aureus infection as the cause of diseases classified elsewhere] Onset: 06-04-2012 06-04-2012 Episodic Genitourinary symptoms and ill-defined conditions (4 sources) History of urinary tract infection; Translations: [Personal history of urinary (tract) infections] Onset: 03-28-2017 03-28-2017 Episodic Neoplasms of unspecified nature or uncertain behavior (2 sources) Neoplasm of uncertain behavior of skin; Translations: [Neoplasm of uncertain behavior of skin] Onset: 07-08-2011 07-08-2011 Episodic Other acquired deformities (4 sources) Mallet finger of unspecified finger(s); Translations: [Mallet finger of unspecified finger(s)] Onset: 06-03-2012 06-24-2012 Episodic Other connective tissue disease (4 sources) Ganglion of joint; Translations: [Ganglion of joint] Onset: 05-22-2012 05-26-2012 Episodic Other gastrointestinal disorders (4 sources) Disorder of intestine; Translations: [Other specified diseases of intestine] Onset: 03-28-2017 03-28-2017 Episodic Other skin disorders (2 sources) Sebaceous cyst of skin; Translations: [Sebaceous cyst] Onset: 06-05-2007 06-05-2007 Episodic Thyroid disorders (4 sources) Disorder of thyroid gland; Translations: [Disorder of thyroid, unspecified] Onset: 03-28-2017 03-28-2017 Episodic Results Test Name Value Interpretation Reference Range Facil ity Vital Signs Date Time Vital Sign Value Performing Clinician Facility 03-23-2022 13:40-0400 Diastolic blood pressure 78 mm[Hg] Tommy Ding MD Work Phone: [facility] 03-23-2022 13:40-0400 Heart rate 73 /min Tommy Ding MD Work Phone: [facility] 03-23-2022 13:40-0400 SaO2% (BldA) [Mass fraction] 100 % Tommy Ding MD Work Phone: [facility] 03-23-2022 13:40-0400 Systolic blood pressure 186 mm[Hg] Tommy Ding MD Work Phone: [facility] 03-23-2022 13:10-0400 Respiratory rate 16 /min Tommy Ding MD Work Phone: [facility] 03-23-2022 12:00-0400 Body temperature 97.9 [degF] Tommy Ding MD Work Phone: [facility] 02-28-2022 14:00-0400 Body height 157.5 cm Tommy Ding MD Work Phone: [facility] 02-28-2022 14:00-0400 Body temperature 97.39 [degF] Tommy Ding MD Work Phone: [facility] 02-28-2022 14:00-0400 Body weight 59.6 kg Tommy Ding MD Work Phone: [facility] 02-28-2022 14:00-0400 Diastolic blood pressure 76 mm[Hg] Tommy Ding MD Work Phone: [facility] 02-28-2022 14:00-0400 Heart rate 87 /min Tommy Ding MD Work Phone: [facility] 02-28-2022 14:00-0400 SaO2% (BldA) [Mass fraction] 97 % Tommy Ding MD Work Phone: [facility] 02-28-2022 14:00-0400 Systolic blood pressure 136 mm[Hg] Tommy Ding MD Work Phone: [facility] 03-28-2017 12:54-0400 BMI (Body Mass Index) 23.12 kg/m2 [facility] Work Phone: 03-28-2017 12:54-0400 Body Temperature 98.2 [degF] [facility] Work Phone: 03-28-2017 12:54-0400 BP Diastolic 79 mm[Hg] [facility] Work Phone: 03-28-2017 12:54-0400 BP Systolic 149 mm[Hg] [facility] Work Phone: 03-28-2017 12:54-0400 Height 157.48 cm [facility] Work Phone: 03-28-2017 12:54-0400 Pulse (Heart Rate) 81 /min [facility] Work Phone: 03-28-2017 12:54-0400 Respiratory Rate 18 /min [facility] Work Phone: 03-28-2017 12:54-0400 Weight 57.34 kg [facility] Work Phone: 03-28-2017 12:54-0400 Weight 57.33 kg [facility] Work Phone: 12-15-2015 13:03-0400 BSA (Body Surface Area) 1.56 m2 [facility] Work Phone: Encounters Encounter Date Encounter Type Care Provider Facility Start: 03-23-2022 End: 03-23-2022 Subsequent hospital visit by physician Tommy Ding MD Work Phone: Ambulatory Surgery Procedures Date Procedure Procedure Detail Performing Clinician Start: 03-23-2022 Colonoscopy flx dx w /collj spec when pfrmd Tommy Ding MD Work Phone: Start: 03-23-2022 Colonoscopy Tommy jose MD Work Phone: Start: 04-05-2016 Colonoscopy Tommy jose MD Work Phone: Plan of Treatment Date Care Activity Detail Author Start: 03-23-2023 Colonoscopy COLONOSCOPY [facility] Start: 04-13-2022 Influenza vaccination INFLUENZA (#1) [facility] Start: 08-13-2021 ADVANCE DIRECTIVE DISCUSSION ADVANCE DIRECTIVE DISCUSSION [facility] Start: 04-11-2017 End: 04-11-2017 Appointment Appointment [facility] Work Phone: Start: 04-05-2017 Colonoscopy COLONOSCOPY [facility] Start: 04-02-2017 End: 04-02-2017 Appointment Appointment [facility] Work Phone: Start: 04-02-2017 End: 04-02-2017 Diagnostic colonoscopy Colonoscopy [facility] Work Phone: Start: 03-28-2017 End: 03-28-2017 Appointment Appointment [facility] Work Phone: Start: 12-10-2015 End: 12-09-2015 Echo exam of abdomen US Abdomen, limited [facility] Work Phone: Start: 06-28-2012 End: 06-28-2012 X-ray exam of hand X-Ray, Hand [facility] Work Phone: Start: 06-24-2012 End: 06-25-2012 Erythrocyte sedimentation rate *Sedimentation Rate (ESR) [facility] Work Phone: Start: 06-20-2012 End: 06-20-2012 Erythrocyte sedimentation rate *Sedimentation Rate (ESR) [facility] Work Phone: Start: 06-13-2012 PNEUMOCOCCAL: 65+ (2 - PCV) PNEUMOCOCCAL: 65+ (2 - PCV) [facility] Start: 06-04-2012 End: 06-04-2012 C reactive protein (hsCRP) *CRP, high sensitivity [facility] Work Phone: Start: 06-04-2012 End: 06-04-2012 CBC W Auto Differential panel - Blood *CBC without Diff [facility] Work Phone: Start: 06-04-2012 End: 06-04-2012 Erythrocyte sedimentation rate *Sedimentation Rate (ESR) [facility] Work Phone: Start: 02-16-2008 BONE DENSITY BONE DENSITY [facility] Start: 1993 SHINGRIX VACCINE (1 of 2) SHINGRIX VACCINE (1 of 2) [facility] Start: 02-16-1988 DIABETES SCREEN DIABETES SCREEN [facility] Start: 1962 Urine microalbumin profile DTAP,TDAP,TD (1 - Tdap) [facility] Start: 1955 Adult depression screening assessment DEPRESSION SCREENING [facility] End: 02-28-2023 COLONOSCOPY DIAGNOSTIC COLONOSCOPY DIAGNOSTIC Endoscopy Routine Personal history of colon cancer 1 Occurrences starting 02/28/2022 until 02/28/2023 [facility] Work Phone: Immunizations Immunization Date Immunization Notes Care Provider [facility] 06-13-2011 influenza virus vacc ine, unspecified formulation Tommy Ding MD Work Phone: [facility] 06-13-2011 pneumococcal polysaccharide vaccine, 23 valent Tommy Ding MD Work Phone: [facility] Payers Date Payer Category Payer Unknown PRIMETIME PRIMET MICHAELA O POS [id number] 2014-Present [phone] [address] [place] [address] O [id number] 2014 Unknown PRIMETIME PRIMET MICHAELA O POS [id number] 2014-Present [phone] [address] [facility] [place] [address] O [id number] Social History Date Type Detail Facility Start: 04-05-2016 End: 03-23-2022 Tobacco smoking status NHIS Ex-smoker [facility] End: 04-05-2014 History of tobacco use Current smoker [facility] End: 04-05-2014 History of tobacco use Cigarette Smoker [facility] Start: 04-05-2016 End: 03-23-2022 Tobacco use and exposure Smokeless tobacco non-user [facility] Start: 02-28-2022 End: 03-23-2022 Alcohol intake Current non-drinker of alcohol (finding) [facility] Start: 08-29-2010 End: 03-23-2022 Tobacco Comment 1.5 packs/week [facility] Start: 1945 Sex Assigned At Not on file [facility] Start: 02-18-2022 End: 03-23-2022 Exposure to SARS-CoV-2 (event) Not sure [facility] Clinical Notes 08-16-2011 to 03-23-2022 Rosita Bernal RN - 03/23/2022 1:40 PM EDTGefrain Bernal RN - 03/23/2022 1:21 PM EDTTommy Ding MD - 03/23/2022 12:45 PM EDTBnic Nava - 02/28/2022 2:42 PM EDTPatient Instructions Note Date & Type Note Facility 03-23-2022 Nurse Note Patient states no discomfort, no complaints . Passing flatus at intervals. Abdomen soft. Bowel sounds in quadrants X 4. Daughter sitting at bedside with patient. IV hydration continued due to dehydration. Rosita Bernal RN [id number]--Arrived in phase II via cart. Left lateral position. Sedated, but responds to verbal stimuli. Color normal; skin warm and dry. Respirations wnl and unlabored. Abdomen soft and with + bowel sounds in quads X 4. Patient resting comfortably. Family at bedside. Dr. Ding with family to review procedure and recommendations. Rosita Bernal RN documented in this encounter [facility] 03-23-2022 History and physical note Images from the original note were not included. HISTORY AND PHYSICAL Kalani Don 1945 REFERRING PHYSICIAN: MD Jarrod CHIEF COMPLAINT: Consult (colonoscopy consult) HPI: The patient is a 77 year old female referred for endoscopy. Kalani notes the following GI complaints: Kalani denies abdominal pain.. Kalani denies diarrhea. Kalani denies constipation. Kalani denies a change in bowel habits. Kalani denies melena. Kalani denies bright red blood per rectum. Kalani denies hemorrhoids. The patient notes no history of upper GI complaints. Kalani has undergone prior endoscopy. Colonoscopy 04/05/2016 was negative. She has a history of colon cancer back in 2011. PAST MEDICAL HISTORY PAST MEDICAL HISTORY Diagnosis Date Bladder infection 02/02/14 Other specified disorder of intestines Personal history of colon cancer Thyroid disorder PAST SURGICAL HISTORY PAST SURGICAL HISTORY Procedure Laterality Date APPENDECTOMY age 1 COLONOSCOPY 02/10/14 repeat 3 yrs COLONOSCOPY 03/15/2015 repeat 1 year COLONOSCOPY FLX DX W/COLLJ SPEC WHEN PFRMD 04/05/2016 Repeat 03/2017 COLONOSCOPY W/BIOPSY SINGLE/MULTIPLE 07/11/11 with submucosal injection COLONOSCOPY W/BIOPSY SINGLE/MULTIPLE 01/21/13 repeat 1 yr LAPS COLECTOMY PRTL W/RMVL TERMINAL ILEUM 11-27-11 MAMMOGRAM DIAGNOSTIC June 2011 [facility] OVARIAN CYSTECTOMY UNI/BI 1973 Ovarian Cystectomy PAST SURGICAL HISTORY OF repair torn minuscus in left knee PAST SURGICAL HISTORY OF cyst removal from back and scalp CURRENT MEDICATIONS Current Outpatient Medications Medication Sig citalopram hydrobromide (CELEXA) 10 mg tablet Take 1 Tablet orally once per day for 90 days baclofen (LIORESAL) 10 mg tablet TAKE 1 TABLET BY MOUTH DAILY FOR 30 DAYS meloxicam (MOBIC) 7.5 mg tablet Take 7.5 mg by mouth daily with food. aspirin 81 mg chewable tablet Take 81 mg by mouth once daily. pravastatin (PRAVACHOL) 40 mg tablet Take 40 mg by mouth once daily. ergocalciferol, vitamin D2, (DRISDOL) 50,000 unit capsule Take 50,000 Units by mouth once every month. peg 3350-Electrolytes (GOLYTELY) 236-22.74-6.74 -5.86 gram suspension Refer to printed prep instructions from your provider. No current facility-administered medications for this visit. ALLERGIES: Iodine and Ultram [Tramadol Hcl] PERSONAL HISTORY: SOCIAL HISTORY Social History Tobacco Use Smoking status: Former Smoker Years: 20.00 Types: Cigarettes Quit date: 04/05/2014 Years since quittin.9 Smokeless tobacco: Never Used Tobacco comment: 1.5 packs/week Vaping Use Vaping Use: Never used Substance Use Topics Alcohol use: No Drug use: No FAMILY HISTORY: FAMILY HISTORY FAMILY HISTORY Problem Relation Age of Onset Cervical Cancer Mother Heart Attack Father REVIEW OF SYMPTOMS: The review of systems data was entered by the nurse and reviewed by me There are no exam notes on file for this visit. PHYSICAL EXAMINATION: General: The patient is 77 year old female, well nourished, well hydrated in no acute distress. The patient is oriented to time, place, and person. VITALS: Blood pressure 136/76, pulse 87, temperature 36.3 C (97.4 F), height 157.5 cm (5' 2 ), weight 59.6 kg (131 lb 6.4 oz), SpO2 97 %. Body mass index is 24.03 kg/m . HEENT: Normal cephalic, ataumatic, pupils are equally round, sclera are anicteric, mucous membranes are moist, oropharynx is clear. Neck has no masses, asymmetry or lymphadenopathy. Thyroid is unremarkable. Respiratory: Clear to auscultation and percussion. Normal respiratory excursion and pattern. Cardiac: Examination is regular rate and rhythm. Abdominal exam: Soft, nontender, with no palpable masses. No hepatosplenomegaly. No palpable hernias. Rectal exam: exam deferred Extremities: no clubbing, cyanosis or edema. No adenopathy. Other: LABORATORY VALUES: As Noted RADIOLOGIC STUDIES: As Noted Assessment IMPRESSION: Personal history of colon cancer (primary encounter diagnosis) PLAN: I plan to perform lower endoscopy. We discussed the risks and benefits of the planned endoscopy. I have informed the patient that complications can occur including failure to complete the endoscopy and perforation. The patient had the opportunity to ask questions concerning the planned endoscopy. My staff has also explained the procedure to the patient in understandable terms and has given the patient printed material concerning the procedure. The patient freely consents to surgery. I plan to use Miralax bowel preperation for endoscopy Diagnoses: (Z85.038) Personal history of colon cancer (primary encounter diagnosis) Return to Clinic: The patient is instructed to follow-up with me 1 week post operatively. COVID (Procedure Consent) Procedure Criteria Procedure Criteria: Yes Elective The surgeon/proceduralist and patient have discussed in detail the risk of exposure to and/or potential harm posed by the COVID-19 virus with having a surgery/procedure at this time versus the risk of delaying the surgery/procedure. It is not possible to know either the risk of delaying the surgery or procedure or chance of getting an infection with perfect accuracy, but a joint decision was made between the patient and the surgeon/proceduralist to proceed at this time with the scheduled surgery/procedure as indicated on the consent form. Tommy Ding III, MD UPDATED HISTORY AND PHYSICAL EXAMINATION SERVICE DATE: 03/23/2022 SERVICE TIME: 12:20 PM PHYSICAL EXAM MUST BE COMPLETED ON ADMISSION The History and Physical (completed in the past 30 days) has been reviewed and the patient has been examined. The contents accurately reflect the patient's condition with the following additions or revisions since the H&P was completed. Examination indicates no changes. This H&P can be found in the attached. SIGNATURE: Tommy Ding III, MD PATIENT NAME: Kalani Don DATE: March 23, 2022 TIME: 12:20 PM documented in this encounter [facility] 02-28-2022 Note HNO ID: [id number] Author: Tommy Ding MD Service: ? Author Type: Physician Type: Progress Notes Filed: 02/28/2022 2:39 PM Note Text: HISTORY AND PHYSICAL Kalani Barreto Florencia 1945 REFERRING PHYSICIAN: MD Jarrod CHIEF COMPLAINT: Consult (colonoscopy consult) HPI: The patient is a 77 year old female referred for endoscopy. Kalani notes the following GI complaints: Kalani denies abdominal pain.. Kalain denies diarrhea. Kalani denies constipation. Kalani denies a change in bowel habits. Kalani denies melena. Kalani denies bright red blood per rectum. Kalani denies hemorrhoids. The patient notes no history of upper GI complaints. Kalani has undergone prior endoscopy. Colonoscopy 04/05/2016 was negative. She has a history of colon cancer back in 2011. PAST MEDICAL HISTORY Diagnosis Date - Bladder infection 02/02/14 - Other specified disorder of intestines - Personal history of colon cancer - Thyroid disorder PAST SURGICAL HISTORY Procedure Laterality Date - APPENDECTOMY age 1 - COLONOSCOPY 02/10/14 repeat 3 yrs - COLONOSCOPY 03/15/2015 repeat 1 year - COLONOSCOPY FLX DX W/COLLJ SPEC WHEN PFRMD 04/05/2016 Repeat 03/2017 - COLONOSCOPY W/BIOPSY SINGLE/MULTIPLE 07/11/11 with submucosal injection - COLONOSCOPY W/BIOPSY SINGLE/MULTIPLE 01/21/13 repeat 1 yr - LAPS COLECTOMY PRTL W/RMVL TERMINAL ILEUM 11-27-11 - MAMMOGRAM DIAGNOSTIC June 2011 [facility] - OVARIAN CYSTECTOMY UNI/BI 1973 Ovarian Cystectomy - PAST SURGICAL HISTORY OF repair torn minuscus in left knee - PAST SURGICAL HISTORY OF cyst removal from back and scalp Current Outpatient Medications Medication Sig - citalopram hydrobromide (CELEXA) 10 mg tablet Take 1 Tablet orally once per day for 90 days - baclofen (LIORESAL) 10 mg tablet TAKE 1 TABLET BY MOUTH DAILY FOR 30 DAYS - meloxicam (MOBIC) 7.5 mg tablet Take 7.5 mg by mouth daily with food. - aspirin 81 mg chewable tablet Take 81 mg by mouth once daily. - pravastatin (PRAVACHOL) 40 mg tablet Take 40 mg by mouth once daily. - ergocalciferol, vitamin D2, (DRISDOL) 50,000 unit capsule Take 50,000 Units by mouth once every month. - peg 3350-Electrolytes (GOLYTELY) 236-22.74-6.74 -5.86 gram suspension Refer to printed prep instructions from your provider. No current facility-administered medications for this visit. ALLERGIES: Iodine and Ultram [Tramadol Hcl] PERSONAL HISTORY: Social History Tobacco Use - Smoking status: Former Smoker Years: 20.00 Types: Cigarettes Quit date: 04/05/2014 Years since quittin.9 - Smokeless tobacco: Never Used - Tobacco comment: 1.5 packs/week Vaping Use - Vaping Use: Never used Substance Use Topics - Alcohol use: No - Drug use: No FAMILY HISTORY: FAMILY HISTORY Problem Relation Age of Onset - Cervical Cancer Mother - Heart Attack Father REVIEW OF SYMPTOMS: The review of systems data was entered by the nurse and reviewed by me There are no exam notes on file for this visit. PHYSICAL EXAMINATION: General: The patient is 77 year old female, well nourished, well hydrated in no acute distress. The patient is oriented to time, place, and person. VITALS: Blood pressure 136/76, pulse 87, temperature 36.3 ?C (97.4 ?F), height 157.5 cm (5' 2 ), weight 59.6 kg (131 lb 6.4 oz), SpO2 97 %. Body mass index is 24.03 kg/m?. HEENT: Normal cephalic, ataumatic, pupils are equally round, sclera are anicteric, mucous membranes are moist, oropharynx is clear. Neck has no masses, asymmetry or lymphadenopathy. Thyroid is unremarkable. Respiratory: Clear to auscultation and percussion. Normal respiratory excursion and pattern. Cardiac: Examination is regular rate and rhythm. Abdominal exam: Soft, nontender, with no palpable masses. No hepatosplenomegaly. No palpable hernias. Rectal exam: exam deferred Extremities: no clubbing, cyanosis or edema. No adenopathy. Other: LABORATORY VALUES: As Noted RADIOLOGIC STUDIES: As Noted Assessment IMPRESSION: Personal history of colon cancer (primary encounter diagnosis) PLAN: I plan to perform lower endoscopy. We discussed the risks and benefits of the planned endoscopy. I have informed the patient that complications can occur including failure to complete the endoscopy and perforation. The patient had the opportunity to ask questions concerning the planned endoscopy. My staff has also explained the procedure to the patient in understandable terms and has given the patient printed material concerning the procedure. The patient freely consents to surgery. I plan to use Miralax bowel preperation for endoscopy Diagnoses: (Z85.038) Personal history of colon cancer (primary encounter diagnosis) Return to Clinic: The patient is instructed to follow-up with me 1 week post operatively. COVID (Procedure Consent) Procedure Criteria Procedure Criteria: Yes Elective The surgeon/proceduralist and patient have discussed in detail the risk of exp (more content not included)... [facility] 02-28-2022 Nurse Note REVIEW OF SYSTEMS: General: The patient denies fatigue, denies weight loss, denies weight gain, denies feeling hot, and denies feelings of cold. Eyes: The patient denies glaucoma, denies eye injury/surgery, wears glasses or contacts. Ear/Nose/Throat: The patient denies allergies, denies hayfever, denies ear infections, and denies bloody noses. Cardiovascular: The patient denies chest pain, denies heart disease, denies high blood pressure,denies cardiac stent, denies prior heart attack, denies irregular heart beat, NOTES high cholesterol, denies poor circulation, denies heart failure, other cardiac issues, denies claudication, denies cold feet, denies peripheral arterial stent. Respiratory: The patient denies tuberculosis, denies pneumonia, denies frequent cough, denies pulmonary embolism, denies shortness of breath, and denies coughing up blood. Gastrointestinal: The patient denies difficulty swallowing, denies acid reflux, denies ulcers, denies vomiting, denies jaundice/hepatitis, denies gallbladder problems, denies black or tarry stools, denies hemorrhoids, denies bleeding from rectum, denies diverticulitis, denies constipation, denies diarrhea, denies loss of stool control, and denies hernias. Kidney/Bladder: The patient denies kidney stones, denies urine infections, and denies bloody urine. Skin: The patient denies a history of skin cancer, denies bleeding/changing moles, and denies a history of skin rash. Neurologic: The patient denies a history of epilepsy/convulsions, denies headaches, denies head/spinal injuries, and denies stroke/TIA. Psychiatric: The patient denies psychiatric medications, denies depression, and denies voices, denies substance abuse. Endocrine: The patient denies thyroid disorders, denies diabetes, and denies hormonal problems. Hematologic: The patient denies a history of bruising, denies bleeding, and denies anemia, denies blood clots. Infections: The patient NOTES a history of measles and mumps, denies rheumatic fever, and denies sexually transmitted diseases. Musculoskeletal: The patient denies back pain/injury, denies back problems, denies sciatica, NOTES knee/foot trouble, denies arthritis, or denies gout. When was patient's last Mammogram screening? N/A Last Colonoscopy: 2015 Cassy Nava documented in this encounter [facility] 02-28-2022 History of Presen t illness Narrative HISTORY AND PHYSICAL Kalani Barreto [place] 1945 REFERRING PHYSICIAN: MD Jarrod CHIEF COMPLAINT: Consult (colonoscopy consult) HPI: The patient is a 77 year old female referred for endoscopy. Kalani notes the following GI complaints: Kalani denies abdominal pain.. Kalani denies diarrhea. Kalani denies constipation. Kalani denies a change in bowel habits. Kalani denies melena. Kalani denies bright red blood per rectum. Kalani denies hemorrhoids. The patient notes no history of upper GI complaints. Kalani has undergone prior endoscopy. Colonoscopy 04/05/2016 was negative. She has a history of colon cancer back in 2011. PAST MEDICAL HISTORY Diagnosis Date Bladder infection 02/02/14 Other specified disorder of intestines Personal history of colon cancer Thyroid disorder PAST SURGICAL HISTORY Procedure Laterality Date APPENDECTOMY age 1 COLONOSCOPY 02/10/14 repeat 3 yrs COLONOSCOPY 03/15/2015 repeat 1 year COLONOSCOPY FLX DX W/COLLJ SPEC WHEN PFRMD 04/05/2016 Repeat 03/2017 COLONOSCOPY W/BIOPSY SINGLE/MULTIPLE 07/11/11 with submucosal injection COLONOSCOPY W/BIOPSY SINGLE/MULTIPLE 01/21/13 repeat 1 yr LAPS COLECTOMY PRTL W/RMVL TERMINAL ILEUM 11-27-11 MAMMOGRAM DIAGNOSTIC June 2011 [facility] OVARIAN CYSTECTOMY UNI/BI 1973 Ovarian Cystectomy PAST SURGICAL HISTORY OF repair torn minuscus in left knee PAST SURGICAL HISTORY OF cyst removal from back and scalp Current Outpatient Medications Medication Sig citalopram hydrobromide (CELEXA) 10 mg tablet Take 1 Tablet orally once per day for 90 days baclofen (LIORESAL) 10 mg tablet TAKE 1 TABLET BY MOUTH DAILY FOR 30 DAYS meloxicam (MOBIC) 7.5 mg tablet Take 7.5 mg by mouth daily with food. aspirin 81 mg chewable tablet Take 81 mg by mouth once daily. pravastatin (PRAVACHOL) 40 mg tablet Take 40 mg by mouth once daily. ergocalciferol, vitamin D2, (DRISDOL) 50,000 unit capsule Take 50,000 Units by mouth once every month. peg 3350-Electrolytes (GOLYTELY) 236-22.74-6.74 -5.86 gram suspension Refer to printed prep instructions from your provider. No current facility-administered medications for this visit. ALLERGIES: Iodine and Ultram [Tramadol Hcl] PERSONAL HISTORY: Social History Tobacco Use Smoking status: Former Smoker Years: 20.00 Types: Cigarettes Quit date: 04/05/2014 Years since quittin.9 Smokeless tobacco: Never Used Tobacco comment: 1.5 packs/week Vaping Use Vaping Use: Never used Substance Use Topics Alcohol use: No Drug use: No FAMILY HISTORY: FAMILY HISTORY Problem Relation Age of Onset Cervical Cancer Mother Heart Attack Father REVIEW OF SYMPTOMS: The review of systems data was entered by the nurse and reviewed by me There are no exam notes on file for this visit. PHYSICAL EXAMINATION: General: The patient is 77 year old female, well nourished, well hydrated in no acute distress. The patient is oriented to time, place, and person. VITALS: Blood pressure 136/76, pulse 87, temperature 36.3 C (97.4 F), height 157.5 cm (5' 2 ), weight 59.6 kg (131 lb 6.4 oz), SpO2 97 %. Body mass index is 24.03 kg/m . HEENT: Normal cephalic, ataumatic, pupils are equally round, sclera are anicteric, mucous membranes are moist, oropharynx is clear. Neck has no masses, asymmetry or lymphadenopathy. Thyroid is unremarkable. Respiratory: Clear to auscultation and percussion. Normal respiratory excursion and pattern. Cardiac: Examination is regular rate and rhythm. Abdominal exam: Soft, nontender, with no palpable masses. No hepatosplenomegaly. No palpable hernias. Rectal exam: exam deferred Extremities: no clubbing, cyanosis or edema. No adenopathy. Other: LABORATORY VALUES: As Noted RADIOLOGIC STUDIES: As Noted Assessment IMPRESSION: Personal history of colon cancer (primary encounter diagnosis) PLAN: I plan to perform lower endoscopy. We discussed the risks and benefits of the planned endoscopy. I have informed the patient that complications can occur including failure to complete the endoscopy and perforation. The patient had the opportunity to ask questions concerning the planned endoscopy. My staff has also explained the procedure to the patient in understandable terms and has given the patient printed material concerning the procedure. The patient freely consents to surgery. I plan to use Miralax bowel preperation for endoscopy Diagnoses: (Z85.038) Personal history of colon cancer (primary encounter diagnosis) Return to Clinic: The patient is instructed to follow-up with me 1 week post operatively. COVID (Procedure Consent) Procedure Criteria Procedure Criteria: Yes Elective The surgeon/proceduralist and patient have discussed in detail the risk of exposure to and/or potential harm posed by the COVID-19 virus with having a surgery/procedure at this time versus the risk of delaying the surgery/procedure. It is not possible to know either the risk of delaying the surgery or procedure or chance of getting an infection with perfect accuracy, but a joint decision was made between the patient and the surgeon/proceduralist to proceed at this time with the scheduled surgery/procedure as indicated on the consent form. Tommy Ding III, MD documented in this encounter [facility] 02-28-2022 Instructions Tommy Ding MD - 02/28/2022 2:12 PM EDT Images from the original note were not included. Bowel Preparation Instructions for: Golytely, Nulytely, Trilyte or Colyte (polyethylene glycol 3350 and electrolytes) IF YOU DO NOT FOLLOW THESE DIRECTIONS, YOUR COLONOSCOPY WILL BE CANCELLED. [facility]ix Instructions: Your bowel must be empty so that your doctor can clearly view your colon. Follow all of the instructions in this handout EXACTLY as they are written. Do NOT eat any solid food the ENTIRE day before your colonoscopy. Drink only clear liquids. Buy your bowel preparation at least 5 days before your colonoscopy. TRANSPORTATION on the Day of Your Exam A responsible person MUST be present with you at Check In prior to your colonoscopy and REMAIN in the endoscopy area until you are discharged. You are NOT ALLOWED to drive, take a taxi or bus, or leave the Endoscopy Center ALONE. If you do not have a responsible hazardous materials tanker driver (family member or friend) with you to take you home, your exam cannot be done with sedation and will be cancelled. Please bring a list of all of your current medications, including any Over-the Counter medications with you. Medications If you take insulin, diabetic medications or blood thinners such as Coumadin (warfarin), Plavix (clopidogrel), Ticlid (ticlopidine hydrochloride), Agrylin (anagrelide), Xarelto (Rivaroxaban), Pradaxa (Dabigatran), Eliquis (Apixaban), and Effient (Prasugrel). You MUST call the doctors who orders those medicines for instructions on altering the dosage before your colonoscopy. All other medications should be taken the day of the exam with a sip of water including ASPIRIN. Five (5) Days Before Your Colonoscopy Do NOT take medicines that stop diarrhea - such as Imodium, Kaopectate, or Pepto Bismol. Do NOT take fiber supplements - such as Metamucil, Citrucel, or Perdiem. Do NOT take products that contain iron - such as multi-vitamins (the label lists what is in the products). Do NOT take Vitamin E. Buy the prescription bowel preparation solution at your local pharmacy or drugstore pharmacy. 07/2019 Bowel Preparation Instructions for: Golytely, Nulytely, Trilyte or Colyte (polyethylene glycol 3350 and electrolytes) Three (3) Days Before Your Colonoscopy Do NOT eat high-fiber foods - such as popcorn, beans, seeds (flax, sunflower, quinoa), multigrain bread, nuts, salad/vegetables, or fresh and dried fruit. One (1) Day Before Your Colonoscopy Only drink clear liquids the ENTIRE DAY before your colonoscopy. Do NOT eat any solid foods. Drink at least 8 ounces of clear liquids every hour after waking up. The clear liquids you can drink include: Clear Liquid (NO RED LIQUIDS) DO NOT DRINK Gatorade, Pedialyte or Powerade Clear broth or bouillon Coffee or tea (no milk or non-dairy creamer) Carbonated and non-carbonated soft drinks Guilherme-Aid or other fruit flavored drinks Strained fruit juices (no pulp) Jell-O, popsicles, hard candy Water Alcohol Milk or non-dairy creamers Noodles or vegetables in soup Juice with pulp Liquid you cannot see through The bowel preparation solution will be consumed in two parts. Mix the solution the evening before your colonoscopy and refrigerate before drinking. You may add the flavor pack that came with the bowel preparation. Do NOT add ice, sugar or any other flavorings to the solution. Part 1 At 6:00 PM - Evening before your colonoscopy Drink an 8-oz glass of bowel preparation every 10 minutes for a total of 8 glasses. You may continue to drink clear liquids until midnight. Part 2 On the day of your colonoscopy you may drink clear liquids up to (three) 3 hours before your procedure. 4 1/2 hours before your colonoscopy Drink an 8-oz glass of bowel preparation every 10 minutes for a total of 8 glasses. Fifteen (15) minutes later, drink an 8-oz glass of clear liquids every 15 minutes for a total of 2 glasses. You may continue to drink clear liquids up to (three) 3 hours before your exam. 3 07/2019 documented in this encounter [facility] 07-31-2021 Note HNO ID: [id number] Author: Roselyn Ellison APRN.PEOPLESOFT ANALYST Service: ? Author Type: Nurse Practitioner Type: Progress Notes Filed: 07/31/2021 12:06 PM Note Text: CC: Patient presents with: Hematuria: hematuria and lower back pain x 1 day HPI Kalani Don is a 76 year old female who presents with complaint of possible UTI. These symptoms have been present for 1 days. Associated symptoms: urgency, backpain, hematuria and pressure Denies: burning, frequency, fever, chills, abdominal pain and flank pain Treatments: increasing her fluids BP is elevated today. Patient denies history of hypertension. States BP average at last primary care office visits have averaged in the 120's-130's/70's-80's. She does not check at home. Admits to having a stressful morning. Denies headache, blurred vision, flushing, sweats, nausea, vomiting, dizziness/lightheadedness, chest pain, palpitations, SOB, edema No new medications. Taking baby Aspirin and statin Denies excessive caffeine intake or OTC medications The ROS was otherwise negative. PMH, Medications, labs, allergies, and recent past visits with PCP were reviewed and updated as able. PHYSICAL EXAM: BP (!) 220/98 Pulse 84 Temp 36.7 ?C (98 ?F) (Tympanic) Wt 63.3 kg (139 lb 9.6 oz) SpO2 99% BMI 27.26 kg/m? General: Well appearing and alert CV: Regular rate and rhythm without obvious murmur Lungs: clear to auscultation bilaterally Back: no CVA tenderness Abdomen: soft, nontender, nondistended Neuro: Awake, alert and oriented x 3, Cranial nerves II-XII grossly intact, Reflexes symmetrical, Normal gait and PERRLA ASSESSMENT/PLAN: 1. Gross hematuria - ICD9: 599.71, ICD10: R31.0 (primary diagnosis) - UA DIP, URINE (POC) positive for large blood, 100 protein, large leuk, positive nit - Send URINE CULTURE - Start Macrobid, see orders - See plan below 2. Elevated blood pressure reading without diagnosis of hypertension - ICD9: 796.2, ICD10: R03.0 Transient BP elevation. No symptoms or exam findings concerning for target organ damage Emphasized importance of follow-up with her PCP concerning today's elevated BP. Instructed to call office tomorrow. Advised to start checking BP at home as well Reviewed red flag symptoms requiring ER evaluation, see patient instructions Patient verbalized understanding Prescription instructions reviewed with patient as applicable. Potential red flag symptoms discussed with the patient. Reviewed appropriate action plan to take if red flag symptoms occur. Patient agreeable to treatment plan. Roselyn Ellison APRN.PILLO [facility] documented as of this encounter (statuses as of 02/28/2022) [facility] History of Past illness Narrative* Problem Noted Date Resolved Date Colon polyp 08/16/2011 02/08/2015 Benign colon polyp 07/24/2011 02/08/2015 documented as of this encounter (statuses as of 03/24/2022) [facility] Diagnosis Personal history of colon cancer- Primary Personal history of malignant neoplasm of large intestine documented in this encounter [facility] note* Diagnosis Personal history of colon cancer- Primary Personal history of malignant neoplasm of large intestine documented in this encounter [facility] for referral (narrative)* Outpatient Procedure (Routine) - Pending Review Specialty Diagnoses / Procedures Referred By Eloisa t Referred To Contact [facility] Diagnoses Personal history of colon cancer Procedures COLONOSCOPY DIAGNOSTIC COLONOSCOPY FLX DX W/COLLJ SPEC WHEN PFRMD Tommy Ding MD [address] [place] [address] [facility] [address] [place] [address] Referral ID Status Reason Start Date Expiration Date Visits Requested Visits Authorized [id number] Pending Review Auto-Generat ed Referral 02/28/2022 02/28/2023 1 1 [facility] for referral (narrative)* Outpatient Procedure (Routine) - Closed Specialty Diagnoses / Procedures Referred By Contac t Referred To Contact [facility] Diagnoses Personal history of colon cancer Procedures COLONOSCOPY DIAGNOSTIC COLONOSCOPY FLX DX W/COLLJ SPEC WHEN Tommy Holloway MD [address] [place] [address] [facility] [address] [place] [address] Referral ID Status Reason Start Date Expiration Date V isits Requested Visits Authorized [id number] Closed Auto-Generate d Referral 03/14/2022 08/12/2022 1 1 [facility] for visit Narrative* Outpatient Procedure (Routine) - Closed Specialty Diagnoses / Procedures Referred By Contac Referred To Contact [facility] Diagnoses Personal history of colon cancer Procedures COLONOSCOPY DIAGNOSTIC COLONOSCOPY FLX DX W/COLLJ SPEC WHEN Tommy Holloway MD [address] [place] [address] [facility] [address] [place] [address] Referral ID Status Reason Start Date Expiration Date V isits Requested Visits Authorized [id number] Closed Auto-Generate d Referral 03/14/2022 08/12/2022 1 1 [facility] Advance Directives No Advanced Directives Records FoundDocuments on File Type Date Recorded 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 Advance Directive(s) 04/05/2016 1:17 PM Medications Administered Section Inactive Administered Medications - up to 3 most recent administrations Medication Order MAR Action Action Date Dose Rate Site diphenhydrAMINE 12.5-50 mg injection (BENADRYL) 12.5-50 mg, INTRAVENOUS, DIRECTED, Starting on 03/23/22 at 1300, Until Aura 03/23/22 at 1659, DOSING DIRECTED BY PHYSICIAN FOR PROCEDURAL SEDATION ONLY, Intraprocedure Given 03/23/2022 12:36 PM EDT 50 mg fentaNYL 50 mcg/mL 25-100 mcg injection (SUBLIMAZE) 25-100 mcg, INTRAVENOUS, DIRECTED, Starting on Aura 03/23/22 at 1300, Until Aura 03/23/22 at 1659, DOSING DIRECTED BY PHYSICIAN FOR PROCEDURAL SEDATION ONLY, Intraprocedure Given 03/23/2022 12:40 PM EDT 50 mcg Summary Purpose Family History No Family History Records Found Additional Source Comments Source Comments (unrecognize d section and content) In the event this informatio n is protected by the Federal Confidentiality of Alcohol and Drug Abuse Patient Records regulations: The Federal rules restrict any use of the information to criminally investigate or prosecute any alcohol or drug abuse patient.[facility] the event this information is protected by the Federal Confidentiality of Alcohol and Drug Abuse Patient Records regulations: The Federal rules restrict any use of the information to criminally investigate or prosecute any alcohol or drug abuse patient.[facility] Reason for Visit (unrecogniz ed section and content) Care Teams (unrecognized sec tion and content) Practice Nurse Relationship Specialty Start Date End Date Ar Hernández Chi PCP - General Unspecified 02/02/14 INFORMATION SOURCE (unrecogn ized section and content) FOR RECORDS PERTAINING TO PATIENTS WHO ARE OR HAVE BEEN ENROLLED IN A CHEMICAL DEPENDENCY/SUBSTANCEABUSE PROGRAM, SOME INFORMATION MAY BE OMITTED. This clinical summary was aggregated from multiple sources. Caution should be exercised in using it in the provision of clinical care. This summary normalizes information from multiple sources, and as a consequence, information in this document may materially change the coding, format and clinical context of patient data. In addition, data may be omitted in some cases. CLINICAL DECISIONS SHOULD BE BASED ON THE PRIMARY CLINICAL RECORDS. [facility], [facility]. provides no warranty or guarantee of the accuracy or completeness of information in this document.
== END | disposition home or self-care (01) ==
PROVIDERS: PCP Family Medicine Geriatric Medicine; Referring Provider Family Medicine Geriatric Medicine; Visit Provider Family Medicine Geriatric Medicine
DX: R68.83 Chills (without fever) (principal)
CPT/HCPCS: 87631

== ENCOUNTER → 2023-09-26 | Outpatient (CLI) | payer MEDICARE, SELFPAY ==
[2023-09-26 16:23] LABS: Absolute Lymphocyte Count 3.38 X10^3/uL (0.83-4.51); Absolute Neutrophil Count 6.4 X10^3/uL (2.0-7.7); Basophil# 0.14 X10^3/uL; Basophil% 1.2 % (0-1); Eosinophil# 0.29 X10^3/uL; Eosinophils% 2.5 % (0-5); Hematocrit 40.1 % (37-47); Hemoglobin 12.7 g/dL (12.0-15.0); Lymphocyte # 3.38 X10^3/ul (0.83-4.51); Lymphocyte % 29.3 % (19-41); Mean Corp Hgb Conc 31.7 g/dL (32-36); Mean Corpuscular Hgb 28.5 pg (27.0-32.0); Mean Corpuscular Volume 90.1 fL (81-99); Monocyte% 9.5 % (0-10); NRBC Flagged by Analyzer 0 % (0-5); Neutrophil # 6.35 X10^3/uL (2.7-7.7); Neutrophil % 55.2 % (47-70); Platelet Count 392 K/mm3 (150-450); RBC Distribution Width CV 14.5 % (11.6-14.6); Red Blood Count 4.45 M/mm3 (4.2-5.4); White Blood Count 11.5 K/mm3 (4.4-11.0)
[2023-09-26 16:55] LABS: Anion Gap 3 (5-15); BUN 30 mg/dL (7-18); BUN/Creat Ratio 34.5 RATIO (10-20); Calcium,Total 8.9 mg/dL (8.5-10.1); Chloride 106 mmol/L (98-107); Creatinine, Serum 0.87 mg/dL (0.55-1.02); EST Glomerular Filtration Rate 67 mL/min (>60); Est Glom Filt Rate - Afr Amer 81 mL/min (>60); Glucose 124 mg/dL (74-106); Potassium 4.5 mmol/L (3.5-5.1); Sodium Level 139 mmol/L (136-145)
--- OUTSIDE RECORDS SUMMARY | 2023-09-26 18:35 | XMS RPT_ITS | CCD ---
Author Name Unknown Address [address] [place] [address] Organization [facility] Care Team Providers Care Internal Medicine Doctor Name Role Phone Tommy Ding MD Unavailable [phone] Felipa PEREIRA, Sharon Damon Unavailable [phone] Autumn Power Unavailable Unavailable Tommy Ding MD Unavailable Edgar, Ar Chi Primary Care Provider Edgar, Ar Chi Primary Care Provider [phone] Allergies Allergy Classification Reported Allergen(s) Allergy Type Date of Onset Reaction(s) Facility (4 sources) povidone-iodine drug allergy 11-03-2015 unknown [facility] Work Phone: (8 sources) traMADol drug allergy 06-10-2012 vomiting [facility] Work Phone: (8 sources) ALTRAM drug allergy 06-10-2012 vominting [facility] Work Phone: (2 sources) Iodine Drug Allergy 04-13-2016 Rash [facility] (2 sources) traMADol Drug Allergy 01-01-2013 GI Upset [facility] Medications Completed/Discontinued Medications Medication Drug Class(es) Dates Sig (Normalized) Sig (Original) acetaminophen 325 mg / oxyCODONE hydrochloride 5 mg oral tablet (8 sources) Opioid Agonist Start: 05-27-2012 End: 06-24-2012 take 1-2 tablets by mouth four times daily as needed for pain PERCOCET 5-325 MG TABS one to two tablets by mouth four times daily as needed for pain OXYCODONE-ACETAMIN OPHEN [id number] Dayna Bruner BAKER HEAD Problems Active Problems Problem Classification Problem Date [...] 78 mm[Hg] Tommy Ding MD Work Phone: [facility] 03-23-2022 13:40-0400 Heart rate 73 /min Tommy Ding MD Work Phone: [facility] 03-23-2022 13:40-0400 SaO2% (BldA) [Mass fraction] 100 % Tommy Ding MD Work Phone: [facility] 03-23-2022 13:40-0400 Systolic blood pressure 186 mm[Hg] Tommy Ding MD Work Phone: [facility] 03-23-2022 13:10-0400 Respiratory rate 16 /min Tommy Ding MD Work Phone: [facility] 03-23-2022 12:00-0400 Body temperature 97.9 [degF] Tommy Ding MD Work Phone: [facility] 02-28-2022 14:00-0400 Body height 157.5 cm Tommy iDng MD Work Phone: [facility] 02-28-2022 14:00-0400 Body temperature 97.39 [degF] Tommy Ding MD Work Phone: [facility] 02-28-2022 14:00-0400 Body weight 59.6 kg Tommy Ding MD Work Phone: [facility] 02-28-2022 14:00-0400 Diastolic blood pressure 76 mm[Hg] Tommy Ding MD Work Phone: [facility] 02-28-2022 14:00-0400 Heart rate 87 /min Tommy Ding MD Work Phone: [facility] 02-28-2022 14:00-0400 SaO2% (BldA) [Mass fraction] 97 % Tommy Ding MD Work Phone: [facility] 02-28-2022 14:00-0400 Systolic blood pressure 136 mm[Hg] Tommy Ding MD Work Phone: [facility] 03-28-2017 12:54-0400 BMI (Body Mass Index) 23.12 kg/m2 [facility] Work Phone: 03-28-2017 12:54-0400 Body Temperature 98.2 [degF] [facility] Work Phone: 03-28-2017 12:54-0400 BP Diastolic 79 mm[Hg] [facility] Work Phone: 03-28-2017 12:54-0400 BP Systolic 149 mm[Hg] [facility] Work Phone: 03-28-2017 12:54-0400 Height 157.48 cm [facility] Work Phone: 03-28-2017 12:54-0400 Pulse (Heart Rate) 81 /min [facility] Work Phone: 03-28-2017 12:54-0400 Respiratory Rate 18 /min [facility] Work Phone: 03-28-2017 12:54-0400 Weight 57.34 kg [facility] Work Phone: 03-28-2017 12:54-0400 Weight 57.33 kg [facility] Work Phone: 12-15-2015 13:03-0400 BSA (Body Surface Area) 1.56 m2 [facility] Work Phone: Encounters Encounter Date Encounter Type [...] Activity Detail Author Start: 03-23-2023 Colonoscopy COLONOSCOPY [facility] Start: 04-13-2022 Influenza vaccination INFLUENZA (#1) [facility] Start: 08-13-2021 ADVANCE DIRECTIVE DISCUSSION ADVANCE DIRECTIVE DISCUSSION [facility] Start: 04-11-2017 End: 04-11-2017 Appointment Appointment [facility] [employer] Work Phone: Start: 04-05-2017 Colonoscopy COLONOSCOPY [facility] Start: 04-02-2017 End: 04-02-2017 Appointment Appointment [facility] [employer] Work Phone: Start: 04-02-2017 End: 04-02-2017 Diagnostic colonoscopy Colonoscopy [facility] [employer] Work Phone: Start: 03-28-2017 End: 03-28-2017 Appointment Appointment [facility] [employer] Work Phone: Start: 12-10-2015 End: 12-09-2015 Echo exam of abdomen US Abdomen, limited [facility] [employer] Work Phone: Start: 06-28-2012 End: 06-28-2012 X-ray exam of hand X-Ray, Hand [facility] [employer] Work Phone: Start: 06-24-2012 End: 06-25-2012 Erythrocyte sedimentation rate *Sedimentation Rate (ESR) [facility] [employer] Work Phone: Start: 06-20-2012 End: 06-20-2012 Erythrocyte sedimentation rate *Sedimentation Rate (ESR) [facility] [employer] Work Phone: Start: 06-13-2012 PNEUMOCOCCAL: 65+ (2 - PCV) PNEUMOCOCCAL: 65+ (2 - PCV) [facility] Start: 06-04-2012 End: 06-04-2012 C reactive protein (hsCRP) *CRP, high sensitivity [facility] [employer] Work Phone: Start: 06-04-2012 End: 06-04-2012 CBC W Auto Differential panel - Blood *CBC without Diff [facility] [employer] Work Phone: Start: 06-04-2012 End: 06-04-2012 Erythrocyte sedimentation rate *Sedimentation Rate (ESR) [facility] Work Phone: Start: 02-16-2008 BONE DENSITY BONE DENSITY [facility] Start: 1993 SHINGRIX VACCINE (1 of 2) SHINGRIX VACCINE (1 of 2) [facility] Start: 02-16-1988 DIABETES SCREEN DIABETES SCREEN [facility] Start: 1962 Urine microalbumin profile DTAP,TDAP,TD (1 - Tdap) [facility] Start: 1955 Adult depression screening assessment DEPRESSION SCREENING [facility] End: 02-28-2023 COLONOSCOPY DIAGNOSTIC COLONOSCOPY DIAGNOSTIC Endoscopy Routine Personal history of colon cancer 1 Occurrences starting 02/28/2022 until 02/28/2023 [facility] Work Phone: Immunizations Immunization Date Immunization Notes Care Provider [facility] 06-13-2011 influenza virus vacc ine, unspecified formulation Tommy Ding MD Work Phone: [facility] 06-13-2011 pneumococcal polysaccharide vaccine, 23 valent Tommy Ding MD Work Phone: [facility] Payers Date Payer Category Payer Unknown PRIMETIME PRIMET MICHAELA O POS [id number] 2014-Present [phone] [address] [place] [address] O [id number] 2014 Unknown PRIMETIME PRIMET MICHAELA O POS [id number] 2014-Present [phone] [address] [facility] [place] [address] O [id number] Social History Date Type Detail Facility Start: 04-05-2016 End: 03-23-2022 Tobacco smoking status NHIS Ex-smoker [facility] End: 04-05-2014 History of tobacco use Current smoker [facility] End: 04-05-2014 History of tobacco use Cigarette Smoker [facility] Start: 04-05-2016 End: 03-23-2022 Tobacco use and exposure Smokeless tobacco non-user [facility] Start: 02-28-2022 End: 03-23-2022 Alcohol intake Current non-drinker of alcohol (finding) [facility] Start: 08-29-2010 End: 03-23-2022 Tobacco Comment 1.5 packs/week [facility] Start: 1945 Sex Assigned At Not on file [facility] Start: 02-18-2022 End: 03-23-2022 Exposure to SARS-CoV-2 (event) Not sure [facility] Clinical Notes 08-16-2011 to 03-23-2022 Rosita Bernal RN - 03/23/2022 1:40 PM EDTGerfain Bernal RN - 03/23/2022 1:21 PM EDTTommy [...] Rosita Bernal RN documented in this encounter [facility] 03-23-2022 History and physical note Images from [...] TERMINAL ILEUM 11-27-11 MAMMOGRAM DIAGNOSTIC June 2011 [facility] OVARIAN CYSTECTOMY UNI/BI 1973 Ovarian Cystectomy PAST [...] TIME: 12:20 PM documented in this encounter [facility] 02-28-2022 Note HNO ID: [id number] Author: Tommy Ding MD Service: ? Author [...] risk of exp (more content not included)... [facility] 02-28-2022 Nurse Note REVIEW OF SYSTEMS: General: [...] 2015 Cassy Nava documented in this encounter [facility] 02-28-2022 History of Presen t illness Narrative [...] Ding III, MD documented in this encounter [facility] 02-28-2022 Instructions Tommy Ding MD - 02/28/2022 [...] If you do not have a responsible log driver (family member or friend) with you [...] exam. 3 07/2019 documented in this encounter [facility] 07-31-2021 Note HNO ID: [id number] Author: Roselyn Ellison APRN.REFRACTORY BRICKLAYER Service: ? Author Type: Nurse Practitioner Type: [...] agreeable to treatment plan. Roselyn Ellison APRN.PILLO [facility] documented as of this encounter (statuses as of 02/28/2022) [facility]01-04-2012 History of Past illness Narrative* Problem Noted Date Resolved Date Colon polyp 08/16/2011 02/08/2015 Benign colon polyp 07/24/2011 02/08/2015 documented as of this encounter (statuses as of 03/24/2022) [facility] Diagnosis Personal history of colon cancer- Primary Personal history of malignant neoplasm of large intestine documented in this encounter [facility] note* Diagnosis Personal history of colon cancer- Primary Personal history of malignant neoplasm of large intestine documented in this encounter [facility] for referral (narrative)* Outpatient Procedure (Routine) - Pending Review Specialty Diagnoses / Procedures Referred By Eloisa t Referred To Contact [facility] Diagnoses Personal history of colon cancer Procedures COLONOSCOPY DIAGNOSTIC COLONOSCOPY FLX DX W/COLLJ SPEC WHEN PFRMD Tommy Ding MD [address] [place] [address] [facility] [address] [place] [address] Referral ID Status Reason Start Date Expiration Date Visits Requested Visits Authorized [id number] Pending Review Auto-Generat ed Referral 02/28/2022 02/28/2023 1 1 [facility] for referral (narrative)* Outpatient Procedure (Routine) - Closed Specialty Diagnoses / Procedures Referred By Contac t Referred To Contact [facility] Diagnoses Personal history of colon cancer Procedures COLONOSCOPY DIAGNOSTIC COLONOSCOPY FLX DX W/COLLJ SPEC WHEN Tommy Holloway MD [address] [place] [address] [facility] [address] [place] [address] Referral ID Status Reason Start Date Expiration Date V isits Requested Visits Authorized [id number] Closed Auto-Generate d Referral 03/14/2022 08/12/2022 1 1 [facility] for visit Narrative* Outpatient Procedure (Routine) - Closed Specialty Diagnoses / Procedures Referred By Contac Referred To Contact [facility] Diagnoses Personal history of colon cancer Procedures COLONOSCOPY DIAGNOSTIC COLONOSCOPY FLX DX W/COLLJ SPEC WHEN Tommy Holloway MD [address] [place] [address] [facility] [address] [place] [address] Referral ID Status Reason Start Date Expiration Date V isits Requested Visits Authorized [id number] Closed Auto-Generate d Referral 03/14/2022 08/12/2022 1 1 [facility] Advance Directives No Advanced Directives Records FoundDocuments on File Type Date Recorded Patient Joint Setter Expl anation Advance Directive(s) 04/05/2016 1:17 PM [...] or prosecute any alcohol or drug abuse patient.[facility] the event this information is protected by the Federal Confidentiality of Alcohol and Drug Abuse Patient Records regulations: The Federal rules restrict any use of the information to criminally investigate or prosecute any alcohol or drug abuse patient.[facility] Reason for Visit (unrecogniz ed section and content) Care Teams (unrecognized sec tion and content) Internal Medicine Doctor Relationship Specialty Start Date End Date Ar [...] BE BASED ON THE PRIMARY CLINICAL RECORDS. [facility], [facility]. provides no warranty or guarantee of the accuracy or completeness of information in this document.
== END | disposition home or self-care (01) ==
LOC: LAB 14:56
PROVIDERS: PCP Family Medicine Geriatric Medicine; Visit Provider Family Medicine Geriatric Medicine
DX: R51.9 Headache, unspecified (principal)
CPT/HCPCS: 36415; 80048; 85025

== ENCOUNTER → 2023-10-10 | Outpatient (CLI) | payer MEDICARE, SELFPAY ==
[2023-10-10 11:48] LABS: Anion Gap 5 (5-15); BUN 17 mg/dL (7-18); BUN/Creat Ratio 18.9 RATIO (10-20); Calcium,Total 9.3 mg/dL (8.5-10.1); Chloride 109 mmol/L (98-107); EST Glomerular Filtration Rate 64 mL/min (>60); Est Glom Filt Rate - Afr Amer 77 mL/min (>60); Glucose 100 mg/dL (74-106); Potassium 4.1 mmol/L (3.5-5.1); Sodium Level 139 mmol/L (136-145)
== END | disposition home or self-care (01) ==
LOC: POLAB3 10:02
PROVIDERS: PCP Family Medicine Geriatric Medicine; Visit Provider Family Medicine Geriatric Medicine
DX: E78.5 Hyperlipidemia, unspecified (principal)
CPT/HCPCS: 36415; 80048

== ENCOUNTER → 2023-12-19 | Outpatient (CLI) | payer MEDICARE, SELFPAY ==
[2023-12-19 10:40] LABS: Absolute Lymphocyte Count 2.09 X10^3/uL (0.83-4.51); Absolute Neutrophil Count 4.1 X10^3/uL (2.0-7.7); Basophil# 0.07 X10^3/uL; Basophil% 0.9 % (0-1); Eosinophil# 0.37 X10^3/uL; Hematocrit 39.7 % (37-47); Hemoglobin 12.3 g/dL (12.0-15.0); Lymphocyte # 2.09 X10^3/ul (0.83-4.51); Lymphocyte % 28.2 % (19-41); Mean Corpuscular Hgb 28.1 pg (27.0-32.0); Mean Corpuscular Volume 90.8 fL (81-99); Mean Platelet Vol. 9.5 fl (6.2-12.0); Monocyte# 0.77 X10^3/uL; Monocyte% 10.4 % (0-10); NRBC Flagged by Analyzer 0 % (0-5); Neutrophil # 4.08 X10^3/uL (2.7-7.7); Neutrophil % 55.2 % (47-70); Platelet Count 294 K/mm3 (150-450); RBC Distribution Width CV 14.2 % (11.6-14.6); RBC Distribution Width SD 47.3 fl (35.1-43.9); Red Blood Count 4.37 M/mm3 (4.2-5.4); White Blood Count 7.4 K/mm3 (4.4-11.0)
[2023-12-19 11:19] LABS: Vitamin D,25 Hydroxy 44.9 ng/mL
[2023-12-19 11:49] LABS: AST(SGOT) 20 U/L (15-37); Alanine Aminotransfer ALT/SGPT 20 U/L (13-56); Albumin, Serum 3.9 g/dL (3.2-5.0); Alkaline Phosphatase 93 U/L (45-117); Anion Gap 7 (5-15); BUN 22 mg/dL (7-18); BUN/Creat Ratio 24.2 RATIO (10-20); Calcium,Total 9.5 mg/dL (8.5-10.1); Chloride 105 mmol/L (98-107); Cholesterol 224 mg/dL (200); Creatinine, Serum 0.91 mg/dL (0.55-1.02); EST Glomerular Filtration Rate 63 mL/min (>60); Est Glom Filt Rate - Afr Amer 76 mL/min (>60); Globulin 4.1 g/dL (2.2-4.2); Glucose 104 mg/dL (74-106); High Density Lipoprotein 73 mg/dL; Potassium 4.5 mmol/L (3.5-5.1); Sodium Level 137 mmol/L (136-145); Thyroid Stim Hormone (TSH) 1.82 uIU/mL (0.358-3.74); Triglycerides 155 mg/dL; Very Low Density Lipoprotein 31 mg/dL (5-40)
== END | disposition home or self-care (01) ==
LOC: LAB 10:24
PROVIDERS: PCP Family Medicine Geriatric Medicine; Referring Provider Family Medicine Geriatric Medicine; Visit Provider Family Medicine Geriatric Medicine
DX: I10 Essential (primary) hypertension (principal); E55.9 Vitamin D deficiency, unspecified; E78.5 Hyperlipidemia, unspecified
CPT/HCPCS: 36415; 80053; 80061; 82306; 84443; 85025

== ENCOUNTER → 2024-02-28 | Outpatient (CLI) | payer MEDICARE, SELFPAY ==
[2024-02-28 12:11] LABS: Anion Gap 12 (5-15); BUN 20 mg/dL (7-18); Calcium,Total 9.2 mg/dL (8.5-10.1); Chloride 98 mmol/L (98-107); Creatinine, Serum 1.05 mg/dL (0.55-1.02); EST Glomerular Filtration Rate 54 mL/min (>60); Est Glom Filt Rate - Afr Amer 65 mL/min (>60); Glucose 124 mg/dL (74-106); Potassium 3.8 mmol/L (3.5-5.1); Sodium Level 134 mmol/L (136-145)
== END | disposition home or self-care (01) ==
LOC: LAB 10:20
PROVIDERS: PCP Family Medicine Geriatric Medicine; Referring Provider Family Medicine Geriatric Medicine; Visit Provider Family Medicine Geriatric Medicine
DX: I10 Essential (primary) hypertension (principal)
CPT/HCPCS: 36415; 80048

== ENCOUNTER → 2024-05-07 | Outpatient (CLI) | payer MEDICARE, SELFPAY ==
--- NOTE | 2024-05-07 11:30 | RAD_ITS ---
EXAM: XR CERVICAL SPINE, 4 OR 5 VIEWS CLINICAL INDICATION: NECK PAIN TECHNIQUE: Frontal, lateral and bilateral oblique views of the cervical spine. COMPARISON: 12/21/2021 FINDINGS: VERTEBRAE: Multilevel facet, uncovertebral joint, and endplate osteophytosis similar to the prior examination. 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 No spondylolisthesis. Preservation of the normal cervical lordosis. No acute fracture. DISC SPACES: Multilevel intervertebral disc height loss similar to the prior examination. SOFT TISSUES: Vascular calcifications. Otherwise, no significant abnormality. No prevertebral soft tissue widening. LUNG APICES: Clear. RAD/Cerv Spine 2 or 3 Views IMPRESSION: 1. No acute fracture. Multilevel degenerative changes similar to the prior exam. 2. 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 Electronically Signed: Arash Schwarz DO at 20:07 EDT ,
== END | disposition home or self-care (01) ==
LOC: RAD 10:57
PROVIDERS: PCP Family Medicine Geriatric Medicine; Referring Provider Family Medicine Geriatric Medicine; Visit Provider Family Medicine Geriatric Medicine
DX: M54.2 Cervicalgia (principal)
CPT/HCPCS: 72040

== ENCOUNTER 2024-06-03 10:00 | Outpatient (RCR) | payer MEDICARE, SELFPAY ==
--- NOTE | 2024-05-19 14:43 | HP.PTEVAL_ITS ---
Patient's Visit Information Visit Information Visit Information: ALEX MC is a 79 year old F referred to Physical Therapy by Dr. Ar Hernández MD with a diagnosis of neck pain. Date of Evaluation: 05/19/24 Physical Therapist: Loco Hammond, DPT, OCS, CSCS Visit Plan Frequency: 2x /Week Duration: 2-4 Weeks Plan: 2x/week for 4 weeks for 1. MH and L lev scap and UT STM and DTR. Stretch same 2 Progress to cervical and postural strength to tolerance. and to HEP. cervical PROM as needed and manual traction. IE: Instruct HEP of cervical ret adn scap circles AROM throughout day and UT and lev scap stretch 30 5x each 2x/day to L with pics. Subjective Subjective: Neck pain L side. present for a couple years and flares up and can hardly stand up. Flares up now and then. Pins and needes in neck L side. Happens every couple months and goes to [facility] for shots and meds and relief. Prednisone helped this time but it came back. No current meds. No arm symptoms, arm feels Ok. Dr wants to try PT. No idea what is causing it. Sleep is OK lately. 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 Take care of house. Avoids when flared. Ex class is stretching mostly at [employer]. Basic ADLs : all OK but painful when hurting. Pain L neck: Pain Intensity (Out of 10): 0 Pain Intensity Range: 0 and 9 Comment: fine now for a week. Objective Objective: Forward head posture and protracted scapula. L knee varus obvious in gait which is I, trasnfers I, no evidence of pain and pt feeling good today. c/s AROM: L SB 18 terry\grees and R is 34 L rotation 45 and R is 65 42degrees ext with R deviation UE AROM WFL and without pain strength UE 4-/5 without pain good scap mobility B> reflexes 2/3 B bi and tri Sensation UE WNL to gross light touch. - c/s compression test. Tenderness to palpation L UT and lev scap only moderately. Balance/Special Test Scores Oswestry Neck Score: 6 Goals Goal 1:: symmetrical rotation and SB cervical AROM Goal Time Frame: 4-6 Weeks Goal 2:: Pt have 2 weeks without any pain flare ups Goal Time Frame: 4-6 Weeks Goal 3:: I appropriate HEP sneck streetch , ROM and postural/cervical strength to limit future problems Goal Time Frame: 4-6 Weeks Goal 4:: oswestry neck score 1 or better Goal Time Frame: 4-6 Weeks Rehabilitation Potential Physical Therapy Diagnosis: Limited neck ROM and tenderness giving frequent flareups that effect funciton Rehabilitation Potential: Fair Anticipated Interventions Patient/Client Instruction: Educate patient on: Condition For the Purpose of:: To decrease pain, To increase ROM, To improve nutrient delivery to tissue, To improve muscle performance and motor function and To increase tolerance to activity/condition/position Therapeutic Exercise to Include: Strength training, Postural training, Flexibilty training and Passive ROM For the Purpose of:: To decrease pain, To increase ROM, To improve nutrient delivery to tissue, To improve muscle performance and motor function and To increase tolerance to activity/condition/position Manual Therapy Techniques to Include: Petrissage, Trigger point massage, Mobilization, Passive ROM and Soft tissue mobilization For the Purpose of:: To decrease pain, To increase ROM, To improve nutrient delivery to tissue and To increase oxygenation perfusion Thermo therapy (hot pack): Yes For the Purpose of:: To improve nutrient delivery to tissue Text: Thank you for the opportunity to evaluate your patient. For Medicare and Medicare HMO plans, please review the plan of care and approve it. It will need to be FAXED BACK to us at [phone] for Medicare purposes. For Medicare only, by signing this I certify the plan of care. Please let me know if there are questions or concerns regarding this plan of care. Physician Signature: Date:
--- NOTE | 2024-06-03 10:49 | HP.PTDCSUM ---
Discharge Summary D/C summary: It has been my pleasure to treat ALEX MC referred by Dr. Ar Hernández MD, with the diagnosis of neck pain for a total of 5 visit(s). Discharge Date: 06/03/24 Please see the following information for a summary of their discharge status. Subjective Subjective: Much better. No more pain up in there. ROM improving and is funcitonal. Activities at home are normal. HEP are helpful. To Edgar in June. Pain L neck: Pain Intensity (Out of 10): 0 Overall Improvement % Improvement: 90 Objective Objective/Function: Improved neck oswestry by 33%(2 points) 65 B rotation without pain, extension to 60 without pain, L SB slightly limited Vs R and tight on R ut but funcitonal. Pt comfortable and compliant with home ROM , stretching and strengthening which she will continue on her own. Goals Goal 1:: symmetrical rotation and SB cervical AROM Goal Progress: Met except SB. Goal 2:: Pt have 2 weeks without any pain flare ups Goal Progress: Goal Met Goal 3:: I appropriate HEP sneck streetch , ROM and postural/cervical strength to limit future problems Goal Progress: Goal Met Goal 4:: oswestry neck score 1 or better Goal Progress: Progressing Plan Plan: d/c to HEP D/C Information d/c sentence: If there are questions or concerns regarding this patient's physical therapy, please feel free to call me at [phone]. Thank you for the referral of this patient. Sincerely, Loco Hammond, DPT, OCS, CSCS Balance/Gait/Functional tests Balance/Special Test Scores Oswestry Neck Score: 4 Improvement % Improvement: 90
== END 2024-06-03 12:52 | disposition home or self-care (01) ==
LOC: PT 10:00
PROVIDERS: PCP Family Medicine Geriatric Medicine; Referring Provider Family Medicine Geriatric Medicine; Visit Provider Family Medicine Geriatric Medicine
DX: M54.2 Cervicalgia (principal)
CPT/HCPCS: 97110; 97140; 97161

== ENCOUNTER → 2024-06-20 | Outpatient (CLI) | payer MEDICARE, SELFPAY ==
[2024-06-20 11:04] LABS: Absolute Lymphocyte Count 2.27 X10^3/uL (0.83-4.51); Absolute Neutrophil Count 5.3 X10^3/uL (2.0-7.7); Basophil# 0.08 X10^3/uL; Basophil% 0.9 % (0-1); Eosinophil# 0.15 X10^3/uL; Eosinophils% 1.7 % (0-5); Hematocrit 39.1 % (37-47); Hemoglobin 12.4 g/dL (12.0-15.0); Lymphocyte # 2.27 X10^3/ul (0.83-4.51); Lymphocyte % 26.4 % (19-41); Mean Corp Hgb Conc 31.7 g/dL (32-36); Mean Corpuscular Hgb 29.2 pg (27.0-32.0); Mean Corpuscular Volume 92.2 fL (81-99); Mean Platelet Vol. 9.6 fl (6.2-12.0); Monocyte# 0.75 X10^3/uL; Monocyte% 8.7 % (0-10); NRBC Flagged by Analyzer 0 % (0-5); Neutrophil # 5.26 X10^3/uL (2.7-7.7); Neutrophil % 61.3 % (47-70); Platelet Count 320 K/mm3 (150-450); RBC Distribution Width CV 13.8 % (11.6-14.6); Red Blood Count 4.24 M/mm3 (4.2-5.4); White Blood Count 8.6 K/mm3 (4.4-11.0)
[2024-06-20 11:31] LABS: Vitamin D,25 Hydroxy 27.6 ng/mL
[2024-06-20 11:38] LABS: ALB/GLOB Ratio 1.1 RATIO (0.9-2.4); AST(SGOT) 14 U/L (15-37); Alanine Aminotransfer ALT/SGPT 21 U/L (13-56); Albumin, Serum 3.9 g/dL (3.2-5.0); Alkaline Phosphatase 88 U/L (45-117); Anion Gap 5 (5-15); BUN 21 mg/dL (7-18); BUN/Creat Ratio 19.3 RATIO (10-20); Calcium,Total 9.4 mg/dL (8.5-10.1); Chloride 109 mmol/L (98-107); Cholesterol 216 mg/dL (200); Creatinine, Serum 1.09 mg/dL (0.55-1.02); EST Glomerular Filtration Rate 51 mL/min (>60); Est Glom Filt Rate - Afr Amer 62 mL/min (>60); Globulin 3.6 g/dL (2.2-4.2); Glucose 92 mg/dL (74-106); High Density Lipoprotein 84 mg/dL; Protein, Total 7.5 g/dL (6.4-8.2); Sodium Level 140 mmol/L (136-145); Triglycerides 142 mg/dL; Very Low Density Lipoprotein 28 mg/dL (5-40)
== END | disposition home or self-care (01) ==
LOC: LAB 10:12
PROVIDERS: PCP Family Medicine Geriatric Medicine; Referring Provider Family Medicine Geriatric Medicine; Visit Provider Family Medicine Geriatric Medicine
DX: I10 Essential (primary) hypertension (principal); E78.5 Hyperlipidemia, unspecified; E55.9 Vitamin D deficiency, unspecified
CPT/HCPCS: 36415; 80053; 80061; 82306; 84443; 85025

== ENCOUNTER 2024-07-31 14:48 | Outpatient (RCR) | payer MEDICARE, SELFPAY ==
--- NOTE | 2024-07-31 15:28 | HP.PTEVAL_ITS ---
Patient's Visit Information Visit Information Visit Information: ALEX MC is a 79 year old F referred to Physical Therapy by Dr. Ar Hernández MD with a diagnosis of cervical DDD. Date of Evaluation: 07/31/24 Physical Therapist: Loco Hammond, DPT, OCS, CSCS Visit Plan Frequency: 1-2x /Week Duration: 2-4 Weeks Plan: Pt feeling great today and wishes to try and maintain this and get back to home ROM and stretching neck exercises over the holiday. She is confident she can do this herself if the pain stays away. Will f/u in 2- 3 weeks with pateint calling prior if pain returns. consider strength in 3 weeks if needed(scap, neck, upper half) or modalities if pain returns. overall 1-2x/week for 3-4 weeks if needed. Reviewed ROM neck and scapula today Subjective Subjective: My darn neck. Always the same spot. Stopped ex and it got worse. to Edgar last Sunday who gave her 3 injections which helped. No pain today but on and off all week. Neck pain started back up maybe when she gets upset and that happened two weeks ago. Needs knee surgery also and that stressed her out. will need L TKA. Neck hurt L side near UT. Used to do neck exercises that were helpful stretching and moving neck. Denies numbness or tingling in UE. Sleeping well this week. Activitie normal today and this week. Basic ADLs I. Dtr lives with her. Pt knows she should have continued her neck exercises and did not. Pain L neck: Pain Intensity (Out of 10): 0 Pain Intensity Range: 0 and 10 Objective Objective: Walks into PT I, transfers chair I, good balance, no evidence of pain . cervical aROM is normal and symmetrical today 60 rotations and 55 ext and fulkl flexion, no pain. scapular AROM WFL B without pain. Full UE AROM shoulders elbows and wrists without pain or hesitation. Mild pec tightness evident with slight Fw scapular posture. strength B shoulders elbows and wrists 4-/5 without pain. - c/s compression reflexes 2/3 bi and tri B sensation UE WNL to gross light touch. Balance/Special Test Scores Oswestry Neck Score: 0 Goals Goal 1:: Back to neck and shoulder activity without pain Goal Time Frame: 4-6 Weeks Goal 2:: Maintain 0/10 paina dn full activity schedule Goal Time Frame: 4-6 Weeks Rehabilitation Potential Physical Therapy Diagnosis: resolving neck pain poorly managed. Rehabilitation Potential: Good Anticipated Interventions Patient/Client Instruction: Educate patient on: Condition and Plan of Care For the Purpose of:: To increase tolerance to activity/condition/position Therapeutic Exercise to Include: Strength training, Postural training, Flexibilty training, Passive ROM and Active ROM Other: to maintain painlessness. Text: Thank you for the opportunity to evaluate your patient. For Medicare and Medicare HMO plans, please review the plan of care and approve it. It will need to be FAXED BACK to us at [phone] for Medicare purposes. For Medicare only, by signing this I certify the plan of care. Please let me know if there are questions or concerns regarding this plan of care. Physician Signature: Date:
--- NOTE | 2024-11-18 15:26 | HP.PT.NRP ---
Patient Information Patient Information: ALEX MC was seen in my office for initial evaluation on 07/31/24. The following Plan of Care was established for this patient: POC Established Initial Frequency: 1-2x /Week Initial Duration: 2-4 Weeks Anticipated Interventions Patient/Client Instruction: Educate patient on: Condition and Plan of Care For the Purpose of:: To increase tolerance to activity/condition/position Therapeutic Exercise to Include: Strength training, Postural training, Flexibilty training, Passive ROM and Active ROM Other: to maintain painlessness. Last Seen Last Seen: This patient was last seen in our office 10/02/24. Pertinent comments regarding their Physical therapy will appear below: Pt seen 8 visits of POC and was working toward an HEP. She did not attend her last two visits in POC. at this point, it has been over 6 weeks and I will discontinue due to nonattendance. At this point I will be discontinuing this patient from physical therapy. I would be happy to see this patient again in the future if found appropriate by the physician. Thank you! Loco Hammond, DPT, OCS, CSCS Balance/Gait/Functional tests Balance/Special Test Scores Oswestry Neck Score: 0
== END 2024-07-31 19:00 | disposition home or self-care (01) ==
LOC: PT 14:48
PROVIDERS: PCP Family Medicine Geriatric Medicine; Visit Provider Family Medicine Geriatric Medicine
DX: M50.10 Cervical disc disorder with radiculopathy, unspecified cervical region
CPT/HCPCS: 97161

== ENCOUNTER 2024-10-02 15:00 | Outpatient (RCR) | payer MEDICARE, SELFPAY ==
--- NOTE | 2024-09-05 13:59 | HP.PTEVAL_ITS ---
Patient's Visit Information Visit Information Visit Information: ALEX MC is a 79 year old F referred to Physical Therapy by Dr. Miguel Angel Coon MD with a diagnosis of L TKA 09/02/24. Date of Evaluation: 09/05/24 Physical Therapist: Loco Hammond, DPT, OCS, CSCS Visit Plan Frequency: 2x /Week Duration: 3 Months Plan: 2x/week for 6-12 weeks for IE: AP, laq throughout day, QS, GS, HS, SLR x10 2x/day. Educated on steps with R and railing x 2, appropriate heel to toe gait with knee flexion, and tub trasnfer. Focus on L patellar mobs, knee rOM, strength L LE, g=ait training and progress ion, stairs, scar massage if needed and HS, quad stretches. progress HEP ice as needed(has machine at home) Subjective Subjective: L TKA on 09/02/24 3 days ago. Was stiff and sore all the time prior for years.Surgery went well. Feels stiff and sore. Oxydcodone adn tylenol help. ice machine using regualrly non stop. HEP: AP, hip ROM, GS, QS, periodically. Walking with wh walker. DTr lives with her. Two story house, but living on one right now. 2 steps to enter was difficult to remember but did OK with ehlp. Holds on to doorway. bathroom I with supervision. Washed up in bathroom today herself Dtr helps with feet of pants but dressing is OK otherwise. Has shower chair. Not employed right now. Has ex class 2x/week for stretching. Not doing now. Hangs with dtr when healthy. cleans alot when healthy. Pain L knee: Pain Intensity (Out of 10): 1 Pain Intensity Range: 0 and 6 Comment: better with meds. Objective Objective: Walks slowly back to PT with wh walker mod I, short L step length. Transfers chair I with UE. Bed trasnfer I but hard time moving L LE on and off but I. Steps are R only with two rails and funcitonally weak R LE making it more difficult. also fearful descending requiring deathgrip on rail and hesitant to shift weight . L knee aROM -2 to 73, supine adn to 85 seated. R knee 0-112. SLR able on L with 8 degree lag. TUg is 18 5# L knee ext adn 12# flexion hip and ankle aROM FL and strength at 3+ hip and 4 ankle. Incision is dressed and not to be removed until next Sunday. No obvious signs of excessive heat, redness or swelling. girth is 17 inches at patella and 19 6 inch sp Balance/Special Test Scores WOMAC Total Score: 79 WOMAC Percentatge: 14.1400 Goals Goal 1:: 0-112 AROM L knee to aid in trasnfers. Goal Time Frame: 4-6 Weeks Goal 2:: walk without AD I in community without deviations Goal Time Frame: 4-6 Weeks Goal 3:: steps reciprocal with one rail Goal Time Frame: 4-6 Weeks Goal 4:: I appropriate HEP to limit future problems Goal Time Frame: 4-6 Weeks Goal 5:: WOMAC score 10 or better. Goal Time Frame: 4-6 Weeks Rehabilitation Potential Physical Therapy Diagnosis: ROM deficits, strength adn mobility deficits after TKA limiting funciton. Rehabilitation Potential: Good Anticipated Interventions Patient/Client Instruction: Educate patient on: Condition and Plan of Care For the Purpose of:: To decrease pain, To increase ROM, To improve nutrient delivery to tissue, To improve muscle performance and motor function, To increase tolerance to activity/condition/position and To decrease soft tissue restriction Therapeutic Exercise to Include: Strength training, Postural training, Flexibilty training, Gait and locomotor training, Passive ROM and Active ROM For the Purpose of:: To decrease pain, To increase ROM, To improve nutrient delivery to tissue, To improve muscle performance and motor function, To increase tolerance to activity/condition/position, To improve ability of physical actions for home/community/work/leisure and To improve gait and locomotor functions Manual Therapy Techniques to Include: Mobilization, Passive ROM and Soft tissue mobilization For the Purpose of:: To decrease pain, To increase ROM, To improve nutrient delivery to tissue, To improve muscle performance and motor function and To increase tolerance to activity/condition/position Cryotherapy (ice pack, ice massage): Yes For the Purpose of:: To decrease pain and To decrease swelling/inflammation Text: Thank you for the opportunity to evaluate your patient. For Medicare and Medicare HMO plans, please review the plan of care and approve it. It will need to be FAXED BACK to us at [phone] for Medicare purposes. For Medicare only, by signing this I certify the plan of care. Please let me know if there are questions or concerns regarding this plan of care. Physician Signat ure: Date:
== END 2024-10-02 19:00 | disposition home or self-care (01) ==
LOC: PT 15:00
PROVIDERS: PCP Family Medicine Geriatric Medicine; Referring Provider Orthopaedic Surgery; Visit Provider Orthopaedic Surgery
DX: M17.12 Unilateral primary osteoarthritis, left knee (principal)
CPT/HCPCS: 97110; 97161

== ENCOUNTER → 2024-12-18 | Outpatient (CLI) | payer MEDICARE, SELFPAY ==
[2024-12-18 10:33] LABS: Absolute Lymphocyte Count 2.29 X10^3/uL (0.83-4.51); Absolute Neutrophil Count 6.8 X10^3/uL (2.0-7.7); Basophil# 0.06 X10^3/uL; Basophil% 0.6 % (0-1); Eosinophil# 0.27 X10^3/uL; Eosinophils% 2.6 % (0-5); Hematocrit 38.4 % (37-47); Hemoglobin 12.3 g/dL (12.0-15.0); Lymphocyte # 2.29 X10^3/ul (0.83-4.51); Lymphocyte % 21.8 % (19-41); Mean Corpuscular Volume 87.5 fL (81-99); Mean Platelet Vol. 9.9 fl (6.2-12.0); Monocyte# 0.97 X10^3/uL; Monocyte% 9.2 % (0-10); NRBC Flagged by Analyzer 0 % (0-5); Neutrophil # 6.81 X10^3/uL (2.7-7.7); Neutrophil % 64.9 % (47-70); Platelet Count 313 K/mm3 (150-450); RBC Distribution Width CV 14.4 % (11.6-14.6); RBC Distribution Width SD 46.1 fl (35.1-43.9); Red Blood Count 4.39 M/mm3 (4.2-5.4); White Blood Count 10.5 K/mm3 (4.4-11.0)
[2024-12-18 11:59] LABS: ALB/GLOB Ratio 1.3 RATIO (0.9-2.4); AST(SGOT) 18 U/L (<=31); Alanine Aminotransfer ALT/SGPT 12 U/L (<=34); Albumin, Serum 4.2 g/dL (3.4-4.8); Alkaline Phosphatase 96 U/L (35-104); Anion Gap 11 (5-15); BUN 26 mg/dL (4-19); BUN/Creat Ratio 22.7 RATIO (10-20); Calcium,Total 9.8 mg/dL (7.6-11.0); Carbon Dioxide 22.6 mmol/L (21.0-32.0); Chloride 107 mmol/L (98-108); Cholesterol 228 mg/dL (<=200); Creatinine, Serum 1.13 mg/dL (0.70-1.20); EST Glomerular Filtration Rate 49 (>60); Globulin 3.3 g/dL (2.2-4.2); Glucose 109 mg/dL (70-99); High Density Lipoprotein 66 mg/dL; Low Density Lipoprotein Calc. 132 mg/dL; Potassium 4.5 mmol/L (3.3-5.1); Protein, Total 7.5 g/dL (5.9-8.4); Sodium Level 140 mmol/L (133-145); Total Bilirubin 0.25 mg/dL (0.00-1.30); Triglycerides 147 mg/dL; Very Low Density Lipoprotein 29 mg/dL (5-40); cholesterol:hdl ratio screen 3.44
== END | disposition home or self-care (01) ==
LOC: LAB 10:01
PROVIDERS: PCP Family Medicine Geriatric Medicine; Referring Provider Family Medicine Geriatric Medicine; Visit Provider Family Medicine Geriatric Medicine
DX: I10 Essential (primary) hypertension (principal); E55.9 Vitamin D deficiency, unspecified; E78.5 Hyperlipidemia, unspecified
CPT/HCPCS: 36415; 80053; 80061; 82306; 84443; 85025

== ENCOUNTER → 2025-06-22 | Outpatient (CLI) | payer MEDICARE, SELFPAY ==
[2025-06-22 09:54] LABS: Hematocrit 40.1 % (37-47); Hemoglobin 12.7 g/dL (12.0-15.0); Immature Granulocytes Count 0.090 X10^3/uL (0.0-0.0); Mean Corp Hgb Conc 31.7 g/dL (32-36); Mean Corpuscular Volume 89.3 fL (81-99); Mean Platelet Vol. 9.7 fl (6.2-12.0); NRBC Flagged by Analyzer 0 % (0-5); Platelet Count 366 K/mm3 (150-450); RBC Distribution Width CV 15.2 % (11.6-14.6); RBC Distribution Width SD 49.2 fl (35.1-43.9); Red Blood Count 4.49 M/mm3 (4.2-5.4); White Blood Count 10.7 K/mm3 (4.4-11.0)
[2025-06-22 10:51] LABS: AST(SGOT) 21 U/L (<=31); Alanine Aminotransfer ALT/SGPT 15 U/L (<=34); Albumin, Serum 4.0 g/dL (3.4-4.8); Alkaline Phosphatase 95 U/L (35-104); Anion Gap 13 (5-15); BUN 24 mg/dL (4-19); BUN/Creat Ratio 21.4 RATIO (10-20); Calcium,Total 9.6 mg/dL (7.6-11.0); Carbon Dioxide 21.2 mmol/L (21.0-32.0); Chloride 106 mmol/L (98-108); Globulin 3.2 g/dL (2.2-4.2); Glucose 105 mg/dL (70-99); Potassium 4.0 mmol/L (3.3-5.1); Vitamin D,25 Hydroxy 40.1 ng/mL (30-100)
[2025-06-22 17:39] LABS: Xtra Tube Kwok EXTRA TUBE
== END | disposition home or self-care (01) ==
LOC: POLAB3 09:39
PROVIDERS: PCP Family Medicine Geriatric Medicine; Visit Provider Family Medicine Geriatric Medicine
DX: I10 Essential (primary) hypertension (principal); E55.9 Vitamin D deficiency, unspecified
CPT/HCPCS: 36415; 80053; 82306; 84443; 85025